=== PATIENT | female | born 1960 | race Caucasian/White ===

== ENCOUNTER 2017-03-16 10:09 | Emergency (ER) | payer MEDICAID ==
[2017-03-16] MEDS ORDERED: NORMAL SALINE 1000 ML 1,000 ML IV ONE (10:40)
[2017-03-16] MEDS ORDERED: ONDANSETRON HCL INJ/PF 4 MG/2 ML SDV IV ONE (10:40)
[2017-03-16] MEDS ORDERED: IPRATROPIUM/ALBUTEROL 0.5-2.5 MG/3 ML AMPUL NEB ONE (10:40)
--- NOTE | 2017-03-16 10:41 | ER Document Report ---
ED Medical Screen (RME) - General Chief Complaint: Nausea/Vomiting/Diarrhea Stated Complaint: FALL/RIB PAIN Time Seen by Provider: 03/16/17 10:39 Mode of Arrival: Ambulatory Information source: Patient Notes: Patient states that she tripped and fell, and her left ribs on a stool 2 days ago. Patient complains of continued rib pain and pain with inspiration. Patient does states she has a previous history of pancreatitis and states this pain feels similar to when she has had pancreatitis. Patient does report nausea , vomiting and diarrhea that started yesterday although she has not had any vomiting since early this morning. Patient does complain of pain with deep inspiration. hx: Congestion, diabetes, dyslipidemia, GERD, pancreatitis, cholecystectomy TRAVEL OUTSIDE OF THE [place] IN LAST 30 DAYS: No - Related Data Allergies/Adverse Reactions: acetaminophen [From Percocet] Adverse Reaction (Verified 03/16/17 10:14) Nausea oxycodone HCl [From Percocet] Adverse Reaction (Verified 03/16/17 10:14) Nausea Past Medical History - Social History Chew tobacco use (# tins/day): No Frequency of alcohol use: None Drug Abuse: None Family history: Hypertension - Past Medical History Cardiac Medical History: Reports: Hx Hypercholesterolemia, Hx Hypertension - NONCOMPLIANT WITH F/U Pulmonary Medical History: Reports: Hx Asthma, Hx Bronchitis, Hx COPD Endocrine Medical History: Reports: Hx Diabetes Mellitus Type 2 Renal/ Medical History: Denies: Hx Peritoneal Dialysis Past Surgical History: Reports: Hx Cholecystectomy, Hx Tubal Ligation - Immunizations Hx Diphtheria, Pertussis, Tetanus Vaccination: Yes Physical Exam - Vital signs Vitals: Temp Pulse Resp BP Pulse Ox 98.1 F 125 H 20 157/90 H 94 03/16/17 10:15 03/16/17 10:03/16/17 10:03/16/17 10:15 03/16/17 10:15 - Respiratory Respiratory status: No respiratory distress Chest status: Pain with cough, Pain with deep breathing Breath sounds: Nonproductive cough, Wheezing Course - Vital Signs Vital signs: Temp Pulse Resp BP Pulse Ox 98.1 F 125 H 20 157/90 H 94 03/16/17 10:15 03/16/17 10:15 03/16/17 10:03/16/17 10:15 03/16/17 10:15
[2017-03-16 11:12] LABS: HEMATOCRIT 45.9 % (36.0-47.0); HEMOGLOBIN 15.3 g/dL (12.0-15.5); MEAN CORPUSCULAR HEMOGLOBIN 30.3 pg (27.0-33.4); MEAN CORPUSCULAR HGB CONC 33.3 g/dL (32.0-36.0); MEAN CORPUSCULAR VOLUME 91 fl (80-97); RED BLOOD COUNT 5.05 10^6/uL (3.72-5.28)
[2017-03-16 11:16] LABS: AMORPHOUS SEDIMENT,URINE TRACE /HPF; APPEARANCE,URINE CLOUDY; BILIRUBIN,URINE NEGATIVE (NEGATIVE); GLUCOSE, URINE NEGATIVE (NEGATIVE); KETONES,URINE NEGATIVE (NEGATIVE); LEUKOCYTE ESTERASE,URINE NEGATIVE (NEGATIVE); NITRITE,URINE NEGATIVE (NEGATIVE); PROTEIN,URINE >=500 mg/dL (NEGATIVE); URINE SPECIFIC GRAVITY 1.027; UROBILINOGEN,URINE NEGATIVE mg/dL (<2.0)
[2017-03-16 11:32] LABS: BAND NEUTROPHILS % (MANUAL) 10 % (3-5); BASOPHILS % (MANUAL) 1 % (0-2); EOSINOPHILS % (MANUAL) 1 % (0-6); LYMPHOCYTES % (MANUAL) 3 % (13-45); TOTAL CELLS COUNTED 100
[2017-03-16 11:33] LABS: RBC MORPHOLOGY COMMENT NORMO-CYTIC/CHROMIC
[2017-03-16 11:35] LABS: ALANINE AMINOTRANSFERASE 36 U/L (9-52); ALBUMIN 4.7 g/dL (3.5-5.0); ALKALINE PHOSPHATASE 71 U/L (38-126); ANION GAP 16 (5-19); ASPARTATE AMINO TRANSFERASE 35 U/L (14-36); BILIRUBIN,DIRECT 0.3 mg/dL (0.0-0.4); BILIRUBIN,TOTAL 0.8 mg/dL (0.2-1.3); BLOOD UREA NITROGEN 14 mg/dL (7-20); CALCIUM 9.4 mg/dL (8.4-10.2); CARBON DIOXIDE 26 mmol/L (22-30); CHLORIDE 96 mmol/L (98-107); CREATININE RESULT 0.79 mg/dL (0.52-1.25); GLUCOSE 148 mg/dL (75-110); LIPASE 67.6 U/L (23-300); POTASSIUM 3.8 mmol/L (3.6-5.0); SODIUM 137.6 mmol/L (137-145); TOTAL PROTEIN 8.3 g/dL (6.3-8.2)
--- NOTE | 2017-03-16 11:50 | RADIOLOGY REPORT (SQ) ---
EXAM DESCRIPTION: CHEST PA/LAT COMPLETED DATE/TIME: 03/16/2017 11:38 am REASON FOR STUDY: fall, left lower anterior rib pain COMPARISON: 2015. TECHNIQUE: Frontal and lateral radiographic views of the chest acquired. NUMBER OF VIEWS: Two view. LIMITATIONS: None. FINDINGS: LUNGS AND PLEURA: No opacities, masses or pneumothorax. No pleural effusion. MEDIASTINUM AND HILAR STRUCTURES: No masses or contour abnormalities. HEART AND VASCULAR STRUCTURES: Heart normal size. No evidence for failure. BONES: Generally intact as assessed. No grossly displaced rib fractures. HARDWARE: None in the chest. OTHER: No other significant finding. IMPRESSION: NO SIGNIFICANT RADIOGRAPHIC FINDING IN THE CHEST. TECHNICAL DOCUMENTATION: JOB ID: [id number] [employer]- All Rights Reserved
--- NOTE | 2017-03-16 11:52 | RADIOLOGY REPORT (SQ) ---
EXAM DESCRIPTION: HUMERUS LEFT COMPLETED DATE/TIME: 03/16/2017 11:38 am REASON FOR STUDY: fall, left upper arm pain COMPARISON: None. NUMBER OF VIEWS: Two views left humerus. LIMITATIONS: None. FINDINGS: There is no acute or significant bone, joint or soft tissue abnormality. OTHER: Normal bone density. IMPRESSION: NORMAL STUDY. TECHNICAL DOCUMENTATION: JOB ID: [id number]
--- NOTE | 2017-03-16 13:16 | ER Document Report ---
ED General - General Chief Complaint: Nausea/Vomiting/Diarrhea Stated Complaint: FALL/RIB PAIN Time Seen by Provider: 03/16/17 10:39 Mode of Arrival: Ambulatory Information source: Patient TRAVEL OUTSIDE OF THE [place] IN LAST 30 DAYS: No - HPI Patient complains to provider of: Rib pain, left lower leg pain Onset: Other - 3 day Onset/Duration: Sudden Quality of pain: Achy Associated symptoms: Hurts to breath Exacerbated by: Movement, Coughing, Deep breathing Relieved by: Denies Similar symptoms previously: No Recently seen / treated by doctor: No Notes: Patient is a 56-year-old female who presents to the emergency room complaining of left rib pain stemming from a trip and fall that occurred 3 days ago, states she was in her kitchen and tripped over a step stool, landing on the stool on her left ribs, patient has bruising to her left lower leg and left elbow, symptoms are worse when she takes a deep breath, coughs or moves in a certain way, she denies any shortness of breath while lying still, no cough, cold or congestion, no fever or chills - Related Data Allergies/Adverse Reactions: acetaminophen [From Percocet] Adverse Reaction (Verified 03/16/17 10:14) Nausea oxycodone HCl [From Percocet] Adverse Reaction (Verified 03/16/17 10:14) Nausea Past Medical History - General Information source: Patient - Social History Smoking Status: Current Every Day Smoker Chew tobacco use (# tins/day): No Frequency of alcohol use: None Drug Abuse: None Family History: Reviewed & Not Pertinent Patient has suicidal ideation: No Patient has homicidal ideation: No - Past Medical History Cardiac Medical History: Reports: Hx Hypercholesterolemia, Hx Hypertension - NONCOMPLIANT WITH F/U Pulmonary Medical History: Reports: Hx Asthma, Hx Bronchitis, Hx COPD Endocrine Medical History: Reports: Hx Diabetes Mellitus Type 2 Renal/ Medical History: Denies: Hx Peritoneal Dialysis Past Surgical History: Reports: Hx Cholecystectomy, Hx Tubal Ligation - Immunizations Hx Diphtheria, Pertussis, Tetanus Vaccination: Yes Hx Pneumococcal Vaccination: 10/13/00 Review of Systems - Review of Systems Constitutional: No symptoms reported EENT: No symptoms reported Cardiovascular: No symptoms reported Respiratory: No symptoms reported Gastrointestinal: No symptoms reported Genitourinary: No symptoms reported Female Genitourinary: No symptoms reported Musculoskeletal: See HPI Skin: No symptoms reported Hematologic/Lymphatic: No symptoms reported Neurological/Psychological: No symptoms reported -: Yes All other systems reviewed and negative Physical Exam - Vital signs Vitals: Temp Pulse Resp BP Pulse Ox 98.1 F 125 H 20 157/90 H 94 03/16/17 10:15 03/16/17 10:15 03/16/17 10:15 03/16/17 10:15 03/16/17 10:15 Interpretation: Normal - General General appearance: Appears well, Alert - HEENT Head: Normocephalic, Atraumatic Eyes: Normal Pupils: PERRL - Respiratory Respiratory status: No respiratory distress Chest status: Tender - Tender to palpate in the left lower anterior rib Breath sounds: Normal Chest palpation: Normal - Cardiovascular Rhythm: Regular Heart sounds: Normal auscultation Murmur: No - Abdominal Inspection: Normal Distension: No distension Bowel sounds: Normal Tenderness: Nontender Organomegaly: No organomegaly - Back Back: Normal, Nontender - Extremities General upper extremity: Normal inspection, Nontender, Normal ROM, Normal temperature, Other - Small ecchymosis on the left elbow General lower extremity: Normal inspection, Nontender, Normal ROM, Normal temperature, Normal weight bearing, Other - small ecchymosis on the left lateral thigh. No: Arnoldo's sign - Neurological Neuro grossly intact: Yes Cognition: Normal Orientation: AAOx4 Cutler Coma Scale Eye Opening: Spontaneous Alecia Coma Scale Verbal: Oriented Alecia Coma Scale Motor: Obeys Commands Alecia Coma Scale Total: 15 Speech: Normal Motor strength normal: LUE, RUE, LLE, RLE Sensory: Normal - Psychological Associated symptoms: Normal affect, Normal mood - Skin Skin Temperature: Warm Skin Moisture: Dry Skin Color: Normal Course - Re-evaluation Re-evalutation: 03/16/17 15:52 Imaging and lab findings discussed with patient unremarkable, she likely has contusions from recent fall, was given pain medication and information for follow-up, advised to return if symptoms worsen, patient acknowledges understanding and agreement with this plan - Vital Signs Vital signs: Temp Pulse Resp BP Pulse Ox 100.0 F 87 22 H 125/67 98 03/16/17 13:31 03/16/17 13:31 03/16/17 13:31 03/16/17 13:31 03/16/17 13:31 - Laboratory Result Diagrams: 03/16/17 10:55 03/16/17 10:55 Laboratory results interpreted by me: 03/16/17 03/16/17 03/16/17 10:55 10:55 10:55 Seg Neuts % (Manual) 80 H Band Neutrophils % 10 H Lymphocytes % (Manual) 3 L Abs Lymphs (Manual) 0.3 L Chloride 96 L Glucose 148 H Total Protein 8.3 H Urine Protein >=500 H Urine Blood MODERATE H - Diagnostic Test Radiology reviewed: Image reviewed, Reports reviewed Discharge - Discharge Clinical Impression: Contusion of rib on left side Qualifiers: Encounter type: initial encounter Qualified Code(s): S20.212A - Contusion of left front wall of thorax, initial encounter Contusion of leg, left Qualifiers: Encounter type: initial encounter Qualified Code(s): S80.12XA - Contusion of left lower leg, initial encounter Condition: Stable Disposition: HOME, SELF-CARE Instructions: Antinausea Medication ([facility]), Oral Narcotic Medication ([facility]), Rib Contusion ([facility]), Rib Injuries and Fractures ([facility]), Contusion ([facility]), Ice Packs ( [facility]) Additional Instructions: Follow up with your primary care provider in one to 2 days. Return to the emergency room immediately if symptoms worsen or any additional concerns. Prescriptions: Hydrocodone/Acetaminophen [Hydrocodon-Acetaminophen 5-325] 1 each PO Q6 #20 tablet Ondansetron [Zofran Odt 4 mg Tablet] 1 - 2 tab PO Q4H #20 tab.rapdis Forms: Return to Work Referrals: SHUBHAM ESCOBEDO MD [Primary Care Provider] - Follow up as needed
[2017-03-16 13:36] VITALS: BP 125/67
== END 2017-03-16 13:46 | disposition home or self-care (01) ==
LOC: ER 10:09
DX: S20.212A Contusion of left front wall of thorax, initial encounter (principal); S80.12XA Contusion of left lower leg, initial encounter; R11.2 Nausea with vomiting, unspecified; Y92.000 Kitchen of unspecified non-institutional (private) residence as the place of occurrence of the external cause; W01.190A Fall on same level from slipping, tripping and stumbling with subsequent striking against furniture, initial encounter; F17.200 Nicotine dependence, unspecified, uncomplicated; E78.00 Pure hypercholesterolemia, unspecified; I10 Essential (primary) hypertension; J45.909 Unspecified asthma, uncomplicated; J44.9 Chronic obstructive pulmonary disease, unspecified; E11.9 Type 2 diabetes mellitus without complications; Z88.6 Allergy status to analgesic agent; Z90.49 Acquired absence of other specified parts of digestive tract; Z98.51 Tubal ligation status
CPT/HCPCS: 94640; 99283; 96361; 96374; 36415; 83690; 85025; 80053; 81001; 71020; 73060; J2405; J7030; J7620

== ENCOUNTER 2017-03-17 09:01 | Emergency (ER) | payer MEDICAID ==
[2017-03-17] MEDS ORDERED: ASPIRIN 81 MG TABLET, CHEWABLE PO ONE (10:11)
--- NOTE | 2017-03-17 10:14 | ER Document Report ---
ED Medical Screen (RME) - General Chief Complaint: Rib Pain Stated Complaint: DIFFICULTY BREATHING Time Seen by Provider: 03/17/17 09:44 Mode of Arrival: Ambulatory Information source: Patient Notes: Patient presents emergency department with complaints of left-sided chest pain. Patient reports that on Friday she tripped and fell over a stool hurting her left ribs, left leg. She was evaluated and treated for this yesterday in the emergency department. Patient returns today because she had a different type of pain on her left side that felt like chest tightening for about 10 minutes. She reports she felt nauseated with that pain. The pain did not radiate. She still complains of pain 3/5 but she reports that from the fall. The chest tightening she reported the pain was 5/5. TRAVEL OUTSIDE OF THE [place] IN LAST 30 DAYS: No - Related Data Allergies/Adverse Reactions: acetaminophen [From Percocet] Adverse Reaction (Verified 03/17/17 09:05) Nausea oxycodone HCl [From Percocet] Adverse Reaction (Verified 03/17/17 09:05) Nausea Past Medical History - Social History Family history: Hypertension - Past Medical History Cardiac Medical History: Reports: Hx Hypercholesterolemia, Hx Hypertension - NONCOMPLIANT WITH F/U Pulmonary Medical History: Reports: Hx Asthma, Hx Bronchitis, Hx COPD Endocrine Medical History: Reports: Hx Diabetes Mellitus Type 2 Renal/ Medical History: Denies: Hx Peritoneal Dialysis Past Surgical History: Reports: Hx Cholecystectomy, Hx Tubal Ligation - Immunizations Hx Diphtheria, Pertussis, Tetanus Vaccination: Yes Physical Exam - Vital signs Vitals: Temp Pulse Resp BP Pulse Ox 97.9 F 81 16 151/98 H 94 03/17/17 09:05 03/17/17 09:05 03/17/17 09:05 03/17/17 09:05 03/17/17 09:05 Course - Vital Signs Vital signs: Temp Pulse Resp BP Pulse Ox 97.9 F 81 16 151/98 H 94 03/17/17 09:05 03/17/17 09:05 03/17/17 09:05 03/17/17 09:05 03/17/17 09:05
--- NOTE | 2017-03-17 10:59 | RADIOLOGY REPORT (SQ) ---
EXAM DESCRIPTION: CHEST PA/LAT COMPLETED DATE/TIME: 03/17/2017 10:44 am REASON FOR STUDY: chest pain COMPARISON: 03/16/2017 EXAM PARAMETERS: NUMBER OF VIEWS: two views TECHNIQUE: Digital Frontal and Lateral radiographic views of the chest acquired. RADIATION DOSE: NA LIMITATIONS: none FINDINGS: LUNGS AND PLEURA: No opacities, masses or pneumothorax. No pleural effusion. MEDIASTINUM AND HILAR STRUCTURES: No masses or contour abnormalities. HEART AND VASCULAR STRUCTURES: Heart normal size. No evidence for failure. BONES: No acute findings. HARDWARE: None in the chest. OTHER: No other significant finding. IMPRESSION: NO SIGNIFICANT RADIOGRAPHIC FINDING IN THE CHEST. TECHNICAL DOCUMENTATION: JOB ID: [id number] [employer]- All Rights Reserved
[2017-03-17 11:54] LABS: ABSOLUTE EOSINOPHILS # (AUTO) 0.2 10^3/uL (0.0-0.6); ABSOLUTE LYMPHOCYTES (AUTO) 1.1 10^3/uL (0.5-4.7); ABSOLUTE MONOCYTES (AUTO) 0.3 10^3/uL (0.1-1.4); ABSOLUTE NEUT (AUTO) 3.1 10^3/uL (1.7-8.2); BASOPHILS % (AUTO) 0.8 % (0-2); EOSINOPHILS % (AUTO) 3.3 % (0-6); HEMATOCRIT 40.4 % (36.0-47.0); HEMOGLOBIN 13.5 g/dL (12.0-15.5); HGB HCT DIFFERENCE 0.1; LYMPHOCYTES % (AUTO) 22.7 % (13-45); MEAN CORPUSCULAR HEMOGLOBIN 30.1 pg (27.0-33.4); MEAN CORPUSCULAR HGB CONC 33.3 g/dL (32.0-36.0); MEAN CORPUSCULAR VOLUME 90 fl (80-97); RED BLOOD COUNT 4.48 10^6/uL (3.72-5.28); RED CELL DISTRIBUTION WIDTH 13.6 % (11.5-14.0); SEGMENTED NEUTROPHILS % (AUTO) 67.2 % (42-78); WHITE BLOOD COUNT 4.7 10^3/uL (4.0-10.5)
[2017-03-17] MEDS ORDERED: IPRATROPIUM/ALBUTEROL 0.5-2.5 MG/3 ML AMPUL NEB ONE (12:04)
[2017-03-17] MEDS ORDERED: OXYCODONE-ACETAMINOPHEN 5-325 MG TABLET PO ONE (12:05)
[2017-03-17] MEDS ORDERED: CYCLOBENZAPRINE HCL 10 MG TABLET PO ONE (12:05)
--- NOTE | 2017-03-17 12:06 | ER Document Report ---
ED General - General Chief Complaint: Rib Pain Stated Complaint: DIFFICULTY BREATHING Time Seen by Provider: 03/17/17 09:44 Mode of Arrival: Ambulatory Information source: Patient Notes: Patient is a 56-year-old female who presents to the ER today for continued, worsening left rib pain after falling off a step stool yesterday, falling on that side on the metal handle of the step stool. She was seen here yesterday, had a negative chest x-ray for any rib fractures, pneumothorax. She states that this morning she lifted her 25 pound granddaughter and had immediate pain again in that area. She is concerned that she injured herself again. She is having shortness of breath, she describes this as "I have to take shallow breaths." She also has COPD. TRAVEL OUTSIDE OF THE [place] IN LAST 30 DAYS: No - Related Data Allergies/Adverse Reactions: acetaminophen [From Percocet] Adverse Reaction (Verified 03/17/17 09:05) Nausea oxycodone HCl [From Percocet] Adverse Reaction (Verified 03/17/17 09:05) Nausea Past Medical History - General Information source: Patient - Social History Smoking Status: Current Every Day Smoker Chew tobacco use (# tins/day): No Frequency of alcohol use: None Drug Abuse: None Family History: Reviewed & Not Pertinent Patient has suicidal ideation: No Patient has homicidal ideation: No - Past Medical History Cardiac Medical History: Reports: Hx Hypercholesterolemia, Hx Hypertension - NONCOMPLIANT WITH F/U Pulmonary Medical History: Reports: Hx Asthma, Hx Bronchitis, Hx COPD Endocrine Medical History: Reports: Hx Diabetes Mellitus Type 2 Renal/ Medical History: Denies: Hx Peritoneal Dialysis Past Surgical History: Reports: Hx Cholecystectomy, Hx Tubal Ligation - Immunizations Hx Diphtheria, Pertussis, Tetanus Vaccination: Yes Hx Pneumococcal Vaccination: 10/13/00 Review of Systems - Review of Systems Constitutional: No symptoms reported EENT: No symptoms reported Cardiovascular: No symptoms reported Respiratory: See HPI Gastrointestinal: No symptoms reported Genitourinary: No symptoms reported Female Genitourinary: No symptoms reported Musculoskeletal: See HPI Skin: No symptoms reported Hematologic/Lymphatic: No symptoms reported Neurological/Psychological: No symptoms reported Physical Exam - Vital signs Vitals: Temp Pulse Resp BP Pulse Ox 97.9 F 81 16 151/98 H 94 03/17/17 09:05 03/17/17 09:05 03/17/17 09:05 03/17/17 09:05 03/17/17 09:05 - Notes Notes: PHYSICAL EXAMINATION: GENERAL: Uncomfortable, holding left side, but in no acute distress. HEAD: Atraumatic, normocephalic. EYES: Pupils equal round and reactive to light, extraocular movements intact, sclera anicteric, conjunctiva are normal. NECK: Normal range of motion, supple without lymphadenopathy LUNGS/CHEST: tenderness over left lateral/anterior ribs, mild expiratory wheezes in right upper lung field, no rales or rhonchi. HEART: Regular rate and rhythm without murmurs ABDOMEN: Soft, no tenderness. No guarding, no rebound EXTREMITIES: Normal range of motion, no pitting edema. No cyanosis. NEUROLOGICAL: Cranial nerves grossly intact. Normal sensory/motor exams. PSYCH: Normal mood, normal affect. SKIN: Warm, Dry, normal turgor, no rashes or lesions noted Course - Vital Signs Vital signs: Temp Pulse Resp BP Pulse Ox 97.9 F 81 16 151/98 H 94 03/17/17 09:06 03/17/17 09:06 03/17/17 09:06 03/17/17 09:06 03/17/17 09:06 - Laboratory Result Diagrams: 03/17/17 11:40 03/17/17 11:40 Laboratory results interpreted by me: 03/17/17 11:40 Glucose 119 H AST 57 H Discharge - Discharge Clinical Impression: Rib pain on left side, SOB (shortness of breath) COPD (chronic obstructive pulmonary disease) Qualifiers: COPD type: unspecified COPD Qualified Code(s): J44.9 - Chronic obstructive pulmonary disease, unspecified Condition: Stable Disposition: HOME, SELF-CARE Additional Instructions: Return immediately for any new or worsening symptoms. Follow up with primary care provider, call tomorrow to make followup appointment. Prescriptions: Cyclobenzaprine HCl [Flexeril 10 mg Tablet] 10 mg PO TIDP PRN #15 tab PRN Reason: Ipratropium/Albuterol Sulfate [Duoneb 3 ml Ampul] 3 ml NEB Q4 PRN #25 vial.neb PRN Reason: Ondansetron [Zofran Odt 4 mg Tablet] 1 - 2 tab PO Q4H PRN #15 tab.rapdis PRN Reason: For Nausea/Vomiting Oxycodone HCl/Acetaminophen [Percocet 5-325 mg Tablet] 1 - 2 tab PO Q4H PRN #15 tablet PRN Reason: Forms: Return to Work Referrals: SHUBHAM ESCOBEDO MD [Primary Care Provider] - Follow up as needed
[2017-03-17 12:24] LABS: ALANINE AMINOTRANSFERASE 40 U/L (9-52); ALKALINE PHOSPHATASE 63 U/L (38-126); ANION GAP 13 (5-19); ASPARTATE AMINO TRANSFERASE 57 U/L (14-36); BILIRUBIN,DIRECT 0.3 mg/dL (0.0-0.4); BILIRUBIN,TOTAL 0.5 mg/dL (0.2-1.3); BLOOD UREA NITROGEN 10 mg/dL (7-20); CALCIUM 8.6 mg/dL (8.4-10.2); CARBON DIOXIDE 27 mmol/L (22-30); CHLORIDE 99 mmol/L (98-107); CREATINE KINASE 120 U/L (30-135); CREATININE RESULT 0.76 mg/dL (0.52-1.25); GLUCOSE 119 mg/dL (75-110); POTASSIUM 3.8 mmol/L (3.6-5.0); SODIUM 139.2 mmol/L (137-145); TOTAL PROTEIN 7.1 g/dL (6.3-8.2)
[2017-03-17 12:36] LABS: CREATINE KINASE MB 1.35 ng/mL (<4.55)
[2017-03-17 12:38] LABS: TROPONIN I < 0.012 ng/mL
[2017-03-17 13:10] VITALS: BP 143/93
--- NOTE | 2017-03-17 14:30 | EKG REPORT ---
SEVERITY:- NORMAL ECG - SINUS RHYTHM : Confirmed by: Trevon Eubanks 17-Mar-2017 14:29:38
== END 2017-03-17 13:20 | disposition home or self-care (01) ==
LOC: ER 09:01
DX: J44.9 Chronic obstructive pulmonary disease, unspecified (principal); R07.81 Pleurodynia; W17.89XA Other fall from one level to another, initial encounter; R06.02 Shortness of breath; I10 Essential (primary) hypertension; E11.9 Type 2 diabetes mellitus without complications; F17.200 Nicotine dependence, unspecified, uncomplicated
CPT/HCPCS: 93005; 94640; 99284; 36415; 82553; 82550; 85025; 80053; 84484; 71020; 93010; J3490; J7620

== ENCOUNTER 2017-09-22 20:29 | Inpatient (IN) | payer MEDICAID ==
[2017-09-22] MEDS ORDERED: INFLUENZA ADLT QUAD (36MOS+) 2017-18 VAC 0.5 ML SYR IM PRN (21:39)
[2017-09-22] MEDS ORDERED: GLUCAGON,HUMAN RECOMB 1 MG INJ IM PRN (21:54)
[2017-09-22] MEDS ORDERED: DEXTROSE 40% GEL 15 GM TUBE PO PRN ×2 (21:54)
[2017-09-22] MEDS ORDERED: DEXTROSE 50%-WATER 25 GM/50 ML DISP.SYRIN IV PRN ×2 (21:54)
[2017-09-22] MEDS ORDERED: LEVOFLOXACIN 750 MG/D5W RTU 750 MG/150 ML RTUPB IV ONE (22:30)
[2017-09-22] MEDS: IPRATROPIUM/ALBUTEROL 0.5-2.5 MG/3 ML AMPUL NEB PRN (22:52)
[2017-09-22 22:53] LABS: ABSOLUTE BASOPHILS # (AUTO) 0.2 10^3/uL (0.0-0.2); ABSOLUTE EOSINOPHILS # (AUTO) 0.1 10^3/uL (0.0-0.6); ABSOLUTE MONOCYTES (AUTO) 0.9 10^3/uL (0.1-1.4); ABSOLUTE NEUT (AUTO) 9.7 10^3/uL (1.7-8.2); BASOPHILS % (AUTO) 1.6 % (0-2); EOSINOPHILS % (AUTO) 0.9 % (0-6); HEMATOCRIT 32.7 % (36.0-47.0); HGB HCT DIFFERENCE 0.3; LYMPHOCYTES % (AUTO) 15.6 % (13-45); MEAN CORPUSCULAR HEMOGLOBIN 30.9 pg (27.0-33.4); MEAN CORPUSCULAR HGB CONC 33.8 g/dL (32.0-36.0); MEAN CORPUSCULAR VOLUME 92 fl (80-97); MONOCYTES % (AUTO) 7.3 % (3-13); RED BLOOD COUNT 3.57 10^6/uL (3.72-5.28); RED CELL DISTRIBUTION WIDTH 13.5 % (11.5-14.0); SEGMENTED NEUTROPHILS % (AUTO) 74.6 % (42-78)
[2017-09-22] MEDS: METHYLPREDNISOLONE INJ 125 MG/2 ML SDV IV SCH (22:55)
[2017-09-22] MEDS ORDERED: KETOROLAC TROMETHAMINE INJ/PF 30 MG/1 ML SDV IV ONE (23:00)
[2017-09-22] MEDS: NORMAL SALINE 1000 ML 1,000 ML IV PRN (23:02)
--- NOTE | 2017-09-22 23:06 | RADIOLOGY REPORT (SQ) ---
EXAM DESCRIPTION: CHEST SINGLE VIEW COMPLETED DATE/TIME: 09/22/2017 10:55 pm REASON FOR STUDY: copd COMPARISON: 03/17/2017. EXAM PARAMETERS: NUMBER OF VIEWS: One view. TECHNIQUE: Single frontal radiographic view of the chest acquired. RADIATION DOSE: NA LIMITATIONS: None. FINDINGS: LUNGS AND PLEURA: Streaky irregular density in the retrocardiac left lower lobe. Right hamzah ng clear. No pleural effusion. MEDIASTINUM AND HILAR STRUCTURES: No masses. Contour normal. HEART AND VASCULAR STRUCTURES: Heart normal in size. Normal vasculature. BONES: No acute findings. HARDWARE: None in the chest. OTHER: No other significant finding. IMPRESSION: EARLY INFILTRATE IN THE LEFT LOWER LOBE. TECHNICAL DOCUMENTATION: JOB ID: [id number] [employer]- All Rights Reserved
[2017-09-22 23:18] LABS: ALANINE AMINOTRANSFERASE 33 U/L (9-52); ALBUMIN 3.5 g/dL (3.5-5.0); ALKALINE PHOSPHATASE 67 U/L (38-126); ANION GAP 10 (5-19); ASPARTATE AMINO TRANSFERASE 20 U/L (14-36); BILIRUBIN,DIRECT 0.4 mg/dL (0.0-0.4); BILIRUBIN,TOTAL 0.5 mg/dL (0.2-1.3); BLOOD UREA NITROGEN 14 mg/dL (7-20); CALCIUM 8.9 mg/dL (8.4-10.2); CARBON DIOXIDE 39 mmol/L (22-30); CHLORIDE 88 mmol/L (98-107); GLUCOSE 149 mg/dL (75-110); SODIUM 137.1 mmol/L (137-145); TOTAL PROTEIN 6.3 g/dL (6.3-8.2)
[2017-09-22 23:21] LABS: POTASSIUM 2.8 mmol/L (3.6-5.0)
[2017-09-22 23:48] LABS: THYROID STIMULATING HORMONE 0.8 uIU/mL (0.47-4.68)
[2017-09-23] MEDS: POTASSIUM CHLORIDE 10 MEQ TABLET.SA PO SCH ×3 (00:02→06:10)
[2017-09-23] MEDS: KETOROLAC TROMETHAMINE INJ/PF 30 MG/1 ML SDV IV SCH ×3 (05:36→17:33)
[2017-09-23] MEDS: METHYLPREDNISOLONE INJ 125 MG/2 ML SDV IV SCH ×3 (05:36→21:51)
[2017-09-23] MEDS: INSULIN LISPRO 100 UNIT/ML 3 ML VIAL SUBCUT PRN ×5 (06:11→21:50)
[2017-09-23 07:43] LABS: ARTERIAL BLOOD BASE EXCESS 6.2 mmol/L; ARTERIAL BLOOD O2 SATURATION 93.7 % (94-98)
[2017-09-23] MEDS: IPRATROPIUM/ALBUTEROL 0.5-2.5 MG/3 ML AMPUL NEB PRN ×3 (08:01→20:55)
[2017-09-23 08:57] LABS: ABSOLUTE LYMPHOCYTES (AUTO) 0.7 10^3/uL (0.5-4.7); ABSOLUTE MONOCYTES (AUTO) 0.2 10^3/uL (0.1-1.4); ABSOLUTE NEUT (AUTO) 11.1 10^3/uL (1.7-8.2); BASOPHILS % (AUTO) 0.3 % (0-2); EOSINOPHILS % (AUTO) 0.1 % (0-6); HEMATOCRIT 33.2 % (36.0-47.0); HEMOGLOBIN 11.1 g/dL (12.0-15.5); HGB HCT DIFFERENCE 0.1; LYMPHOCYTES % (AUTO) 5.7 % (13-45); MEAN CORPUSCULAR HEMOGLOBIN 30.6 pg (27.0-33.4); MEAN CORPUSCULAR HGB CONC 33.4 g/dL (32.0-36.0); MEAN CORPUSCULAR VOLUME 91 fl (80-97); MONOCYTES % (AUTO) 1.8 % (3-13); RED BLOOD COUNT 3.63 10^6/uL (3.72-5.28); RED CELL DISTRIBUTION WIDTH 13.3 % (11.5-14.0); SEGMENTED NEUTROPHILS % (AUTO) 92.1 % (42-78)
[2017-09-23 09:10] LABS: ALANINE AMINOTRANSFERASE 26 U/L (9-52); ALBUMIN 3.3 g/dL (3.5-5.0); ALKALINE PHOSPHATASE 61 U/L (38-126); ASPARTATE AMINO TRANSFERASE 16 U/L (14-36); BILIRUBIN,DIRECT 0.2 mg/dL (0.0-0.4); BILIRUBIN,TOTAL 0.2 mg/dL (0.2-1.3); BLOOD UREA NITROGEN 23 mg/dL (7-20); CALCIUM 8.9 mg/dL (8.4-10.2); CHLORIDE 95 mmol/L (98-107); CREATININE RESULT 1.08 mg/dL (0.52-1.25); GLUCOSE 317 mg/dL (75-110); SODIUM 136.1 mmol/L (137-145); TOTAL PROTEIN 5.9 g/dL (6.3-8.2)
[2017-09-23 09:18] LABS: ANION GAP 11 (5-19)
[2017-09-23 09:20] LABS: CARBON DIOXIDE 30 mmol/L (22-30); POTASSIUM 4.5 mmol/L (3.6-5.0)
[2017-09-23] MEDS ORDERED: LEVOFLOXACIN 750 MG/D5W RTU 750 MG/150 ML RTUPB IV SCH ×2 (10:00→22:00)
[2017-09-23] MEDS ORDERED: [UNRECOGNIZED DRUG - OTHER] PO SCH (12:00)
[2017-09-23] MEDS ORDERED: (PENDING PHARMACY ID) (Lisinopril/Hydrochlorothiazide [Lisinopril-Hctz 20-12.5 Mg Tab] 1 E PO SCH (12:00)
--- NOTE | 2017-09-23 12:11 | PDOC H&P ---
History of Present Illness Admission Date/PCP: 09/22/17 20:29 SHUBHAM ESCOBEDO MD History of Present Illness: ANUPAM MENON is a 57 year old female, she has a history of type 2 diabetes mellitus, gout, tobacco dependence, she came to the office for evaluation of shortness of breath, cough, redness and pain of the right foot. She was seen and evaluated in the office, on inspection of the right foot there is swelling and erythema of the right foot with tenderness on palpation. I could not rule out osteomyelitis versus gout versus cellulitis in the office, I thought she would need MRI of the foot to differentiate which of this condition is predominant. She also was audibly wheezing, shortness of breath and cough. The cough is productive of sputum, she was admitted directly from the office into the hospital for evaluation and management of her symptoms because of the many constellation of symptoms and signs including possible pneumonia/COPD and possible cellulitis of the right foot. The chest x-ray that was done suggest early pneumonia in the left lower lobe, the ABG on room air, pH is 7.45 PCO2 45.7 bicarbonate 31, consistent with respiratory alkalosis with relative hypoxemia Past Medical History Cardiac Medical History: Reports: Hyperlipidema, Hypertension - NONCOMPLIANT WITH F/U Pulmonary Medical History: Reports: Asthma, Bronchitis, Chronic Obstructive Pulmonary Disease (COPD) Endocrine Medical History: Reports: Diabetes Mellitus Type 2 Past Surgical History Past Surgical History: Reports: Cholecystectomy, Tubal Ligation Social History Smoking Status: Current Every Day Smoker Cigarettes Packs Per Day: 1 Number of Years Smokin Last Time Smoked: today Frequency of Alcohol Use: Occasional Hx Prescription Drug Abuse: No Family History Family History: Reviewed & Not Pertinent Parental Family History Reviewed: Yes Children Family History Reviewed: Yes Sibling(s) Family History Reviewed.: Yes Medication/Allergy Home Medications: Allopurinol [Zyloprim 300 mg Tablet] 300 mg PO DAILY 09/23/17 Atorvastatin Calcium [Lipitor 40 mg Tablet] 40 mg PO DAILY 09/23/17 Lisinopril/Hydrochlorothiazide [Lisinopril-Hctz 20-12.5 mg Tab] 1 each PO Q12 Metformin HCl [Glucophage] 1,000 mg PO Q12 09/23/17 Omeprazole 20 mg PO DAILY 09/23/17 Sour Gutierrez Extract [Tart Gutierrez Extract] 1,200 mg PO DAILY 09/23/17 Allergies/Adverse Reactions: No Known Allergies Allergy (Verified 03/17/17 13:49) Review of Systems Ears: ABSENT: hearing changes Cardiovascular: ABSENT: as per HPI, chest pain, edema, orthropnea, palpitations , other Respiratory: PRESENT: cough, dyspnea Gastrointestinal: ABSENT: abdominal pain, constipation, diarrhea, hematemesis, hematochezia, nausea, vomiting Genitourinary: ABSENT: dysuria, hematuria Musculoskeletal: PRESENT: other - Right foot pain Integumentary: ABSENT: rash, wounds Neurological: ABSENT: abnormal gait, abnormal speech, confusion, dizziness, focal weakness, syncope Psychiatric: ABSENT: anxiety, depression, homidical ideation, suicidal ideation Endocrine: ABSENT: cold intolerance, heat intolerance, menstrual abnormalities, polydipsia, polyuria Hematologic/Lymphatic: ABSENT: easy bleeding, easy bruising, lymphadenopathy Physical Exam Vital Signs: Temp Pulse Resp BP Pulse Ox 97.7 F 90 16 157/84 H 96 09/23/17 07:34 09/23/17 08:00 09/23/17 08:00 09/23/17 07:34 09/23/17 08:00 Intake & Output 09/22/17 09/23/17 09/24/17 06:59 06:59 06:59 Intake Total 1342 Balance 1342 Weight 68.2 kg General appearance: PRESENT: no acute distress, well-developed, well-nourished Head exam: PRESENT: atraumatic, normocephalic Eye exam: PRESENT: conjunctiva pink, EOMI, PERRLA Ear exam: PRESENT: normal external ear exam Mouth exam: PRESENT: moist, tongue midline Neck exam: PRESENT: full ROM. ABSENT: carotid bruit, JVD, lymphadenopathy, thyromegaly Respiratory exam: PRESENT: wheezes Cardiovascular exam: PRESENT: RRR, +S1, +S2 Pulses: PRESENT: normal dorsalis pedis pul, +2 pedal pulses bilateral Vascular exam: PRESENT: normal capillary refill GI/Abdominal exam: PRESENT: normal bowel sounds, soft Rectal exam: PRESENT: deferred Extremities exam: PRESENT: other - Swelling, redness of the right foot involving particularly, lateral aspect with the dorsum of the foot Neurological exam: PRESENT: alert, awake, oriented to person, oriented to place , oriented to time, oriented to situation, CN II-XII grossly intact Psychiatric exam: PRESENT: appropriate affect, normal mood Skin exam: PRESENT: dry, intact, warm Results Laboratory Results: 09/23/17 08:44 09/23/17 08:44 09/22/17 09/22/17 09/22/17 22:20 22:20 22:20 WBC 13.0 H RBC 3.57 L Hgb 11.0 L Hct 32.7 L MCV 92 MCH 30.9 MCHC 33.8 RDW 13.5 Plt Count 338 Seg Neutrophils % 74.6 Lymphocytes % 15.6 Monocytes % 7.3 Eosinophils % 0.9 Basophils % 1.6 Absolute Neutrophils 9.7 H Absolute Lymphocytes 2.0 Absolute Monocytes 0.9 Absolute Eosinophils 0.1 Absolute Basophils 0.2 Carbonic Acid HCO3/H2CO3 Ratio ABG pH ABG pCO2 ABG pO2 ABG HCO3 ABG O2 Saturation ABG Base Excess FiO2 Sodium 137.1 Potassium 2.8 L* Chloride 88 L Carbon Dioxide 39 H Anion Gap 10 BUN 14 Creatinine 0.90 Est GFR ( Amer) > 60 Est GFR (Non-Af Amer) > 60 Glucose 149 H Lactic Acid Calcium 8.9 Total Bilirubin 0.5 AST 20 ALT 33 Alkaline Phosphatase 67 Total Protein 6.3 Albumin 3.5 TSH 0.80 Free T4 1.30 09/22/17 09/23/17 09/23/17 23:28 06:22 08:44 WBC 12.0 H RBC 3.63 L Hgb 11.1 L Hct 33.2 L MCV 91 MCH 30.6 MCHC 33.4 RDW 13.3 Plt Count 318 Seg Neutrophils % 92.1 H Lymphocytes % 5.7 L Monocytes % 1.8 L Eosinophils % 0.1 Basophils % 0.3 Absolute Neutrophils 11.1 H Absolute Lymphocytes 0.7 Absolute Monocytes 0.2 Absolute Eosinophils 0.0 Absolute Basophils 0.0 Carbonic Acid 1.38 H HCO3/H2CO3 Ratio 22:1 ABG pH 7.45 ABG pCO2 45.7 H ABG pO2 66.1 L ABG HCO3 31.0 H ABG O2 Saturation 93.7 L ABG Base Excess 6.2 FiO2 21% Sodium Potassium Chloride Carbon Dioxide Anion Gap BUN Creatinine Est GFR ( Amer) Est GFR (Non-Af Amer) Glucose Lactic Acid 2.0 Calcium Total Bilirubin AST ALT Alkaline Phosphatase Total Protein Albumin TSH Free T4 09/23/17 08:44 WBC RBC Hgb Hct MCV MCH MCHC RDW Plt Count Seg Neutrophils % Lymphocytes % Monocytes % Eosinophils % Basophils % Absolute Neutrophils Absolute Lymphocytes Absolute Monocytes Absolute Eosinophils Absolute Basophils Carbonic Acid HCO3/H2CO3 Ratio ABG pH ABG pCO2 ABG pO2 ABG HCO3 ABG O2 Saturation ABG Base Excess FiO2 Sodium 136.1 L Potassium 4.5 D Chloride 95 L Carbon Dioxide 30 Anion Gap 11 BUN 23 H Creatinine 1.08 Est GFR ( Amer) > 60 Est GFR (Non-Af Amer) 53 L Glucose 317 H Lactic Acid Calcium 8.9 Total Bilirubin 0.2 AST 16 ALT 26 Alkaline Phosphatase 61 Total Protein 5.9 L Albumin 3.3 L TSH Free T4 Impressions: Chest X-Ray 09/22/17 00:00 IMPRESSION: EARLY INFILTRATE IN THE LEFT LOWER LOBE. Assessment & Plan - Diagnosis (1) Acute exacerbation of chronic obstructive pulmonary disease (COPD) Is this a current diagnosis for this admission?: Yes Plan: She has acute COPD exacerbation, she will be treated with IV Solu-Medrol 125 mg every 6 hours, IV antibiotic, bronchodilators (2) Cellulitis of right foot Is this a current diagnosis for this admission?: Yes Plan: I cannot completely rule out osteomyelitis this patient, MRI of the foot is ordered (3) Left lower lobe pneumonia Qualifiers: Pneumonia type: due to unspecified organism Qualified Code(s): J18.1 - Lobar pneumonia, unspecified organism Is this a current diagnosis for this admission?: Yes (4) Type 2 diabetes mellitus Qualifiers: Diabetes mellitus complication status: without complication Diabetes mellitus custodial insulin use: without terminal gauger supervisor use Qualified Code(s): E11.9 - Type 2 diabetes mellitus without complications Is this a current diagnosis for this admission?: Yes (5) Nicotine dependence, cigarettes, with other nicotine-induced disorders Is this a current diagnosis for this admission?: Yes (6) Respiratory alkalosis Is this a current diagnosis for this admission?: Yes
[2017-09-23] MEDS ORDERED: ATORVASTATIN CALCIUM 40 MG TABLET PO ONE (13:00)
[2017-09-23] MEDS ORDERED: HYDROCHLOROTHIAZIDE 12.5 MG CAPSULE PO ONE (13:30)
[2017-09-23] MEDS ORDERED: ALLOPURINOL 300 MG TABLET PO ONE (13:30)
[2017-09-23] MEDS ORDERED: LISINOPRIL 10 MG TABLET PO ONE (13:30)
--- NOTE | 2017-09-23 13:55 | RADIOLOGY REPORT (SQ) ---
EXAM DESCRIPTION: MRI RT LOWER EXTREMITY WITHOUT COMPLETED DATE/TIME: 09/23/2017 1:06 pm REASON FOR STUDY: osteomyelitis COMPARISON: None. TECHNIQUE: T1-weighted, T2-weighted, and gradient echo noncontrast multiplanar imaging of the right foot. LIMITATIONS: None. FINDINGS: MARROW SIGNAL: No marrow signal alteration. No occult fracture. No evidence for osteo ne crosis. JOINT EFFUSION: No significant effusions. PLANTAR FASCIA: Normal as visualized. TARSOMETATARSAL AND TOE ARTICULATIONS: Anatomic. Mild degenerative changes first metatarsal phalange al joint. INTERMETATARSAL SPACES AND PLANTAR PLATES: Intact. No soft tissue mass to suggest a neuroma. SOFT TISSUES: Mild dorsal and plantar soft tissue swelling. No abscess. OTHER: No other significant finding. IMPRESSION: Mild soft tissue swelling. No occult fractures. TECHNICAL DOCUMENTATION: JOB ID: [id number] [employer]- All Rights Reserved
[2017-09-23] MEDS: NORMAL SALINE 1000 ML 1,000 ML IV PRN (15:50)
[2017-09-23] MEDS: METFORMIN HCL 500 MG TABLET PO SCH ×2 (17:30→21:52)
[2017-09-23 18:47] LABS: ANION GAP 14 (5-19); BLOOD UREA NITROGEN 33 mg/dL (7-20); CALCIUM 9.4 mg/dL (8.4-10.2); CARBON DIOXIDE 29 mmol/L (22-30); CHLORIDE 95 mmol/L (98-107); CREATININE RESULT 1.55 mg/dL (0.52-1.25); GLUCOSE 327 mg/dL (75-110); POTASSIUM 4.5 mmol/L (3.6-5.0)
[2017-09-23 20:53] LABS: APPEARANCE,URINE SLIGHTLY-CLOUDY; BILIRUBIN,URINE NEGATIVE (NEGATIVE); GLUCOSE, URINE >=500 mg/dL (NEGATIVE); KETONES,URINE NEGATIVE (NEGATIVE); LEUKOCYTE ESTERASE,URINE SMALL (NEGATIVE); NITRITE,URINE NEGATIVE (NEGATIVE); PROTEIN,URINE 30 mg/dL (NEGATIVE); URINE SPECIFIC GRAVITY 1.021; UROBILINOGEN,URINE NEGATIVE mg/dL (<2.0)
--- NOTE | 2017-09-23 21:13 | PDOC PROGRESS REPORT ---
Subjective Progress Note for:: 09/23/17 Subjective:: She was admitted for the management of acute COPD exacerbation, inflammatory right foot, MRI of the foot was done, history of meningitis was ruled out it is more consistent with cellulitis of the right foot. She developed acute kidney injury most likely secondary to IV Toradol, she was given IV Toradol for the pain from the inflammation of the right foot. She also has COPD with acute sedation and also pneumonia she responded to IV Solu-Medrol there is less wheezing today compared to yesterday Reason For Visit: COPD, OSTEOMYELITIS OF RIGHT FOOT, She was seen by the bedside, she was admitted for the management of acute COPD exacerbation, right food inflammatory process, MRI of the right foot was done, osteomyelitis was ruled out it is more consistent with cellulitis of the right foot. Yesterday she was treated with IV Solu-Medrol, IV Toradol for the inflammatory foot pain, she developed acute kidney injury from today's lab work most likely from the IV Toradol. Physical Exam Vital Signs: Temp Pulse Resp BP Pulse Ox 97.3 F 80 16 154/78 H 97 09/23/17 19:20 09/23/17 19:20 09/23/17 19:20 09/23/17 19:20 09/23/17 19:20 Intake & Output 09/22/17 09/23/17 09/24/17 06:59 06:59 06:59 Intake Total 1342 1871 Balance 1342 1871 Weight 68.2 kg 68.2 kg General appearance: PRESENT: mild distress Head exam: PRESENT: atraumatic, normocephalic Eye exam: PRESENT: PERRLA. ABSENT: scleral icterus Ear exam: PRESENT: normal external ear exam Mouth exam: PRESENT: moist, tongue midline Respiratory exam: PRESENT: wheezes Cardiovascular exam: PRESENT: RRR, +S1, +S2 Vascular exam: PRESENT: normal capillary refill GI/Abdominal exam: PRESENT: normal bowel sounds, soft Rectal exam: PRESENT: deferred Musculoskeletal exam: PRESENT: other - inflammation of the right foot Neurological exam: PRESENT: alert, awake, oriented to person, oriented to place , oriented to time, oriented to situation, CN II-XII grossly intact. ABSENT: motor sensory deficit Psychiatric exam: PRESENT: appropriate affect, normal mood. ABSENT: homicidal ideation, suicidal ideation Skin exam: PRESENT: dry, intact, warm. ABSENT: cyanosis, rash Results Laboratory Results: 09/23/17 08:44 09/23/17 18:10 09/22/17 09/22/17 09/22/17 22:20 22:20 22:20 WBC 13.0 H RBC 3.57 L Hgb 11.0 L Hct 32.7 L MCV 92 MCH 30.9 MCHC 33.8 RDW 13.5 Plt Count 338 Seg Neutrophils % 74.6 Lymphocytes % 15.6 Monocytes % 7.3 Eosinophils % 0.9 Basophils % 1.6 Absolute Neutrophils 9.7 H Absolute Lymphocytes 2.0 Absolute Monocytes 0.9 Absolute Eosinophils 0.1 Absolute Basophils 0.2 Carbonic Acid HCO3/H2CO3 Ratio ABG pH ABG pCO2 ABG pO2 ABG HCO3 ABG O2 Saturation ABG Base Excess FiO2 Sodium 137.1 Potassium 2.8 L* Chloride 88 L Carbon Dioxide 39 H Anion Gap 10 BUN 14 Creatinine 0.90 Est GFR ( Amer) > 60 Est GFR (Non-Af Amer) > 60 Glucose 149 H Lactic Acid Calcium 8.9 Total Bilirubin 0.5 AST 20 ALT 33 Alkaline Phosphatase 67 Total Protein 6.3 Albumin 3.5 TSH 0.80 Free T4 1.30 Urine Color Urine Appearance Urine pH Ur Specific [place] Urine Protein Urine Glucose (UA) Urine Ketones Urine Blood Urine Nitrite Ur Leukocyte Esterase Urine WBC (Auto) Urine RBC (Auto) 09/22/17 09/23/17 09/23/17 23:28 06:22 08:44 WBC 12.0 H RBC 3.63 L Hgb 11.1 L Hct 33.2 L MCV 91 MCH 30.6 MCHC 33.4 RDW 13.3 Plt Count 318 Seg Neutrophils % 92.1 H Lymphocytes % 5.7 L Monocytes % 1.8 L Eosinophils % 0.1 Basophils % 0.3 Absolute Neutrophils 11.1 H Absolute Lymphocytes 0.7 Absolute Monocytes 0.2 Absolute Eosinophils 0.0 Absolute Basophils 0.0 Carbonic Acid 1.38 H HCO3/H2CO3 Ratio 22:1 ABG pH 7.45 ABG pCO2 45.7 H ABG pO2 66.1 L ABG HCO3 31.0 H ABG O2 Saturation 93.7 L ABG Base Excess 6.2 FiO2 21% Sodium Potassium Chloride Carbon Dioxide Anion Gap BUN Creatinine Est GFR ( Amer) Est GFR (Non-Af Amer) Glucose Lactic Acid 2.0 Calcium Total Bilirubin AST ALT Alkaline Phosphatase Total Protein Albumin TSH Free T4 Urine Color Urine Appearance Urine pH Ur Specific [place] Urine Protein Urine Glucose (UA) Urine Ketones Urine Blood Urine Nitrite Ur Leukocyte Esterase Urine WBC (Auto) Urine RBC (Auto) 09/23/17 09/23/17 09/23/17 08:44 18:10 20:30 WBC RBC Hgb Hct MCV MCH MCHC RDW Plt Count Seg Neutrophils % Lymphocytes % Monocytes % Eosinophils % Basophils % Absolute Neutrophils Absolute Lymphocytes Absolute Monocytes Absolute Eosinophils Absolute Basophils Carbonic Acid HCO3/H2CO3 Ratio ABG pH ABG pCO2 ABG pO2 ABG HCO3 ABG O2 Saturation ABG Base Excess FiO2 Sodium 136.1 L 138.0 Potassium 4.5 D 4.5 Chloride 95 L 95 L Carbon Dioxide 30 29 Anion Gap 11 14 BUN 23 H 33 H Creatinine 1.08 1.55 H Est GFR ( Amer) > 60 42 L Est GFR (Non-Af Amer) 53 L 35 L Glucose 317 H 327 H Lactic Acid Calcium 8.9 9.4 Total Bilirubin 0.2 AST 16 ALT 26 Alkaline Phosphatase 61 Total Protein 5.9 L Albumin 3.3 L TSH Free T4 Urine Color YELLOW Urine Appearance SLIGHTLY-CLOUDY Urine pH 5.0 Ur Specific [place] 1.021 Urine Protein 30 H Urine Glucose (UA) >=500 H Urine Ketones NEGATIVE Urine Blood SMALL H Urine Nitrite NEGATIVE Ur Leukocyte Esterase SMALL H Urine WBC (Auto) 4 Urine RBC (Auto) 2 Impressions: Chest X-Ray 09/22/17 00:00 IMPRESSION: EARLY INFILTRATE IN THE LEFT LOWER LOBE. Lower Extremity MRI 09/23/17 11:57 IMPRESSION: Mild soft tissue swelling. No occult fractures. Assessment & Plan - Diagnosis (1) Acute exacerbation of chronic obstructive pulmonary disease (COPD) Is this a current diagnosis for this admission?: Yes (2) Cellulitis of right foot Is this a current diagnosis for this admission?: Yes (3) Left lower lobe pneumonia Qualifiers: Pneumonia type: due to unspecified organism Qualified Code(s): J18.1 - Lobar pneumonia, unspecified organism Is this a current diagnosis for this admission?: Yes (4) Type 2 diabetes mellitus Qualifiers: Diabetes mellitus complication status: without complication Diabetes mellitus termite helper insulin use: without fci use Qualified Code(s): E11.9 - Type 2 diabetes mellitus without complications Is this a current diagnosis for this admission?: Yes (5) Nicotine dependence, cigarettes, with other nicotine-induced disorders Is this a current diagnosis for this admission?: Yes (6) Respiratory alkalosis Is this a current diagnosis for this admission?: Yes - Plan Summary Plan Summary: She will continue IV Solu-Medrol, antibiotic, will discontinue Toradol
[2017-09-23] MEDS: HYDROCHLOROTHIAZIDE 12.5 MG CAPSULE PO SCH (21:53)
[2017-09-23] MEDS: LISINOPRIL 10 MG TABLET PO SCH (21:54)
[2017-09-23] MEDS ORDERED: NICOTINE 21 MG/24 HR PATCH.TD24 TD ONE (22:00)
[2017-09-24] MEDS: LANSOPRAZOLE 15 MG TAB.RAP.DR PO SCH (05:51)
[2017-09-24] MEDS: METHYLPREDNISOLONE INJ 125 MG/2 ML SDV IV SCH ×3 (05:51→21:17)
[2017-09-24] MEDS: METFORMIN HCL 500 MG TABLET PO SCH ×4 (07:52→21:18)
[2017-09-24] MEDS: INSULIN LISPRO 100 UNIT/ML 3 ML VIAL SUBCUT PRN ×4 (07:52→21:54)
[2017-09-24 09:33] LABS: HEMATOCRIT 32.3 % (36.0-47.0); HEMOGLOBIN 10.6 g/dL (12.0-15.5); HGB HCT DIFFERENCE -0.5; MEAN CORPUSCULAR HEMOGLOBIN 30.4 pg (27.0-33.4); MEAN CORPUSCULAR HGB CONC 32.7 g/dL (32.0-36.0); MEAN CORPUSCULAR VOLUME 93 fl (80-97); RED BLOOD COUNT 3.47 10^6/uL (3.72-5.28); RED CELL DISTRIBUTION WIDTH 13.3 % (11.5-14.0); WHITE BLOOD COUNT 20.4 10^3/uL (4.0-10.5)
[2017-09-24 09:55] LABS: ALANINE AMINOTRANSFERASE 29 U/L (9-52); ALBUMIN 2.9 g/dL (3.5-5.0); ALKALINE PHOSPHATASE 51 U/L (38-126); ANION GAP 15 (5-19); ASPARTATE AMINO TRANSFERASE 13 U/L (14-36); BLOOD UREA NITROGEN 37 mg/dL (7-20); CALCIUM 8.8 mg/dL (8.4-10.2); CARBON DIOXIDE 22 mmol/L (22-30); CHLORIDE 99 mmol/L (98-107); CREATININE RESULT 1.19 mg/dL (0.52-1.25); GLUCOSE 326 mg/dL (75-110); POTASSIUM 4.6 mmol/L (3.6-5.0); SODIUM 136.2 mmol/L (137-145); TOTAL PROTEIN 5.3 g/dL (6.3-8.2)
[2017-09-24 09:56] LABS: BILIRUBIN,TOTAL < 0.1 mg/dL (0.2-1.3)
[2017-09-24 10:00] LABS: BAND NEUTROPHILS % (MANUAL) 1 % (3-5); BASOPHILS % (MANUAL) 0 % (0-2); EOSINOPHILS % (MANUAL) 0 % (0-6); LYMPHOCYTES % (MANUAL) 7 % (13-45); TOTAL CELLS COUNTED 100
[2017-09-24 10:01] LABS: HYPOCHROMASIA SLIGHT; POLYCHROMASIA SLIGHT; TOXIC GRANULATION 1+
[2017-09-24] MEDS: HYDROCHLOROTHIAZIDE 12.5 MG CAPSULE PO SCH ×2 (10:32→21:17)
[2017-09-24] MEDS: ALLOPURINOL 300 MG TABLET PO SCH (10:32)
[2017-09-24] MEDS: LISINOPRIL 10 MG TABLET PO SCH ×2 (10:32→21:18)
[2017-09-24] MEDS: NORMAL SALINE 1000 ML 1,000 ML IV PRN (10:33)
[2017-09-24] MEDS: NICOTINE 21 MG/24 HR PATCH.TD24 TD SCH (10:33)
[2017-09-24] MEDS: ATORVASTATIN CALCIUM 40 MG TABLET PO SCH (10:33)
[2017-09-24] MEDS: IPRATROPIUM/ALBUTEROL 0.5-2.5 MG/3 ML AMPUL NEB PRN (14:06)
--- NOTE | 2017-09-24 14:37 | PDOC PROGRESS REPORT ---
Subjective Progress Note for:: 09/24/17 Subjective:: She was seen by the bedside, she said she feels better than when she was admitted Reason For Visit: COPD, OSTEOMYELITIS OF RIGHT FOOT Physical Exam Vital Signs: Temp Pulse Resp BP Pulse Ox 98.1 F 80 18 158/79 H 94 09/24/17 11:40 09/24/17 14:06 09/24/17 14:06 09/24/17 11:40 09/24/17 14:06 Intake & Output 09/23/17 09/24/17 09/25/17 06:59 06:59 06:59 Intake Total 1342 4105 Output Total 600 Balance 1342 3505 Weight 68.2 kg 68.2 kg Head exam: PRESENT: atraumatic, normocephalic Eye exam: PRESENT: conjunctiva pink, EOMI, PERRLA Ear exam: PRESENT: normal external ear exam Mouth exam: PRESENT: moist, tongue midline Neck exam: PRESENT: full ROM Respiratory exam: PRESENT: clear to auscultation meaghan Cardiovascular exam: PRESENT: RRR, +S1, +S2 Pulses: PRESENT: normal dorsalis pedis pul, +2 pedal pulses bilateral Vascular exam: PRESENT: normal capillary refill GI/Abdominal exam: PRESENT: normal bowel sounds, soft Rectal exam: PRESENT: deferred Neurological exam: PRESENT: alert, awake, oriented to person, oriented to place , oriented to time, oriented to situation, CN II-XII grossly intact Psychiatric exam: PRESENT: appropriate affect, normal mood Skin exam: PRESENT: dry, intact, warm. ABSENT: cyanosis, rash Results Laboratory Results: 09/24/17 09:00 09/24/17 09:00 09/23/17 09/23/17 09/24/17 18:10 20:30 09:00 WBC 20.4 H RBC 3.47 L Hgb 10.6 L Hct 32.3 L MCV 93 MCH 30.4 MCHC 32.7 RDW 13.3 Plt Count 354 Seg Neutrophils % Not Reportable Lymphocytes % Not Reportable Monocytes % Not Reportable Eosinophils % Not Reportable Basophils % Not Reportable Absolute Neutrophils Not Reportable Absolute Lymphocytes Not Reportable Absolute Monocytes Not Reportable Absolute Eosinophils Not Reportable Absolute Basophils Not Reportable Sodium 138.0 Potassium 4.5 Chloride 95 L Carbon Dioxide 29 Anion Gap 14 BUN 33 H Creatinine 1.55 H Est GFR ( Amer) 42 L Est GFR (Non-Af Amer) 35 L Glucose 327 H Calcium 9.4 Total Bilirubin AST ALT Alkaline Phosphatase Total Protein Albumin Urine Color YELLOW Urine Appearance SLIGHTLY-CLOUDY Urine pH 5.0 Ur Specific [place] 1.021 Urine Protein 30 H Urine Glucose (UA) >=500 H Urine Ketones NEGATIVE Urine Blood SMALL H Urine Nitrite NEGATIVE Ur Leukocyte Esterase SMALL H Urine WBC (Auto) 4 Urine RBC (Auto) 2 09/24/17 09:00 WBC RBC Hgb Hct MCV MCH MCHC RDW Plt Count Seg Neutrophils % Lymphocytes % Monocytes % Eosinophils % Basophils % Absolute Neutrophils Absolute Lymphocytes Absolute Monocytes Absolute Eosinophils Absolute Basophils Sodium 136.2 L Potassium 4.6 Chloride 99 Carbon Dioxide 22 Anion Gap 15 BUN 37 H Creatinine 1.19 Est GFR ( Amer) 57 L Est GFR (Non-Af Amer) 47 L Glucose 326 H Calcium 8.8 Total Bilirubin < 0.1 L AST 13 L ALT 29 Alkaline Phosphatase 51 Total Protein 5.3 L Albumin 2.9 L Urine Color Urine Appearance Urine pH Ur Specific [place] Urine Protein Urine Glucose (UA) Urine Ketones Urine Blood Urine Nitrite Ur Leukocyte Esterase Urine WBC (Auto) Urine RBC (Auto) Impressions: Chest X-Ray 09/22/17 00:00 IMPRESSION: EARLY INFILTRATE IN THE LEFT LOWER LOBE. Lower Extremity MRI 09/23/17 11:57 IMPRESSION: Mild soft tissue swelling. No occult fractures. Assessment & Plan - Diagnosis (1) Acute exacerbation of chronic obstructive pulmonary disease (COPD) Is this a current diagnosis for this admission?: Yes (2) Cellulitis of right foot Is this a current diagnosis for this admission?: Yes (3) Left lower lobe pneumonia Qualifiers: Pneumonia type: due to unspecified organism Qualified Code(s): J18.1 - Lobar pneumonia, unspecified organism Is this a current diagnosis for this admission?: Yes (4) Type 2 diabetes mellitus Qualifiers: Diabetes mellitus complication status: without complication Diabetes mellitus termite control servicer insulin use: without termite control servicer use Qualified Code(s): E11.9 - Type 2 diabetes mellitus without complications Is this a current diagnosis for this admission?: Yes (5) Nicotine dependence, cigarettes, with other nicotine-induced disorders Is this a current diagnosis for this admission?: Yes (6) Respiratory alkalosis Is this a current diagnosis for this admission?: Yes (7) Steroid-induced hyperglycemia Is this a current diagnosis for this admission?: Yes - Plan Summary Plan Summary: The Solu-Medrol dose will be reduced to 60 mg IV every 8
[2017-09-24] MEDS: LEVOFLOXACIN 750 MG TABLET PO SCH (21:18)
[2017-09-25] MEDS: NORMAL SALINE 1000 ML 1,000 ML IV PRN ×2 (01:30→17:24)
[2017-09-25] MEDS: LANSOPRAZOLE 15 MG TAB.RAP.DR PO SCH (05:36)
[2017-09-25] MEDS: METHYLPREDNISOLONE INJ 125 MG/2 ML SDV IV SCH ×2 (05:37→13:00)
[2017-09-25] MEDS: IPRATROPIUM/ALBUTEROL 0.5-2.5 MG/3 ML AMPUL NEB PRN (08:40)
[2017-09-25] MEDS: METFORMIN HCL 500 MG TABLET PO SCH ×4 (08:55→21:22)
[2017-09-25] MEDS: INSULIN LISPRO 100 UNIT/ML 3 ML VIAL SUBCUT PRN ×3 (08:58→17:23)
[2017-09-25] MEDS: ATORVASTATIN CALCIUM 40 MG TABLET PO SCH (09:01)
[2017-09-25] MEDS: NICOTINE 21 MG/24 HR PATCH.TD24 TD SCH (09:01)
[2017-09-25] MEDS: HYDROCHLOROTHIAZIDE 12.5 MG CAPSULE PO SCH ×2 (09:01→21:31)
[2017-09-25] MEDS: ALLOPURINOL 300 MG TABLET PO SCH (09:01)
[2017-09-25] MEDS: LISINOPRIL 10 MG TABLET PO SCH ×2 (09:03→21:32)
[2017-09-25 12:02] LABS: ABSOLUTE LYMPHOCYTES (AUTO) 0.5 10^3/uL (0.5-4.7); ABSOLUTE MONOCYTES (AUTO) 0.6 10^3/uL (0.1-1.4); ABSOLUTE NEUT (AUTO) 17.4 10^3/uL (1.7-8.2); BASOPHILS % (AUTO) 0.1 % (0-2); HEMATOCRIT 34.2 % (36.0-47.0); HEMOGLOBIN 11.3 g/dL (12.0-15.5); HGB HCT DIFFERENCE -0.3; LYMPHOCYTES % (AUTO) 2.9 % (13-45); MEAN CORPUSCULAR HEMOGLOBIN 30.6 pg (27.0-33.4); MEAN CORPUSCULAR VOLUME 93 fl (80-97); RED BLOOD COUNT 3.68 10^6/uL (3.72-5.28); RED CELL DISTRIBUTION WIDTH 13.3 % (11.5-14.0); WHITE BLOOD COUNT 18.6 10^3/uL (4.0-10.5)
[2017-09-25 12:13] LABS: ALANINE AMINOTRANSFERASE 27 U/L (9-52); ALBUMIN 3.2 g/dL (3.5-5.0); ALKALINE PHOSPHATASE 45 U/L (38-126); ANION GAP 13 (5-19); ASPARTATE AMINO TRANSFERASE 12 U/L (14-36); BLOOD UREA NITROGEN 43 mg/dL (7-20); CALCIUM 8.8 mg/dL (8.4-10.2); CARBON DIOXIDE 24 mmol/L (22-30); CHLORIDE 100 mmol/L (98-107); CREATININE RESULT 1.13 mg/dL (0.52-1.25); GLUCOSE 220 mg/dL (75-110); TOTAL PROTEIN 5.8 g/dL (6.3-8.2)
[2017-09-25 12:17] LABS: BILIRUBIN,TOTAL < 0.1 mg/dL (0.2-1.3)
--- NOTE | 2017-09-25 20:26 | PDOC PROGRESS REPORT ---
Subjective Progress Note for:: 09/25/17 Subjective:: Patient was seen by the bedside, she feels much better, she is no more wheezing the cellulitis of the right foot is virtually resolved. She will be discharged home in the morning Reason For Visit: COPD, OSTEOMYELITIS OF RIGHT FOOT Physical Exam Vital Signs: Temp Pulse Resp BP Pulse Ox 98.3 F 81 18 147/72 H 94 09/25/17 15:05 09/25/17 19:00 09/25/17 15:05 09/25/17 15:05 09/25/17 15:05 Intake & Output 09/24/17 09/25/17 09/26/17 06:59 06:59 06:59 Intake Total 4105 3593 1642 Output Total 600 1200 800 Balance 3505 2393 842 Weight 68.2 kg 66.7 kg General appearance: PRESENT: no acute distress Eye exam: PRESENT: PERRLA Respiratory exam: PRESENT: clear to auscultation meaghan Cardiovascular exam: PRESENT: +S1, +S2 GI/Abdominal exam: PRESENT: soft Results Laboratory Results: 09/25/17 11:48 09/25/17 11:48 09/25/17 09/25/17 11:48 11:48 WBC 18.6 H RBC 3.68 L Hgb 11.3 L Hct 34.2 L MCV 93 MCH 30.6 MCHC 33.0 RDW 13.3 Plt Count 399 Seg Neutrophils % 94.0 H Lymphocytes % 2.9 L Monocytes % 3.0 Eosinophils % 0.0 Basophils % 0.1 Absolute Neutrophils 17.4 H Absolute Lymphocytes 0.5 Absolute Monocytes 0.6 Absolute Eosinophils 0.0 Absolute Basophils 0.0 Sodium 137.0 Potassium 4.0 Chloride 100 Carbon Dioxide 24 Anion Gap 13 BUN 43 H Creatinine 1.13 Est GFR ( Amer) > 60 Est GFR (Non-Af Amer) 50 L Glucose 220 H Calcium 8.8 Total Bilirubin < 0.1 L AST 12 L ALT 27 Alkaline Phosphatase 45 Total Protein 5.8 L Albumin 3.2 L Impressions: Chest X-Ray 09/22/17 00:00 IMPRESSION: EARLY INFILTRATE IN THE LEFT LOWER LOBE. Lower Extremity MRI 09/23/17 11:57 IMPRESSION: Mild soft tissue swelling. No occult fractures. Assessment & Plan - Diagnosis (1) Acute exacerbation of chronic obstructive pulmonary disease (COPD) Is this a current diagnosis for this admission?: Yes (2) Cellulitis of right foot Is this a current diagnosis for this admission?: Yes (3) Left lower lobe pneumonia Qualifiers: Pneumonia type: due to unspecified organism Qualified Code(s): J18.1 - Lobar pneumonia, unspecified organism Is this a current diagnosis for this admission?: Yes (4) Type 2 diabetes mellitus Qualifiers: Diabetes mellitus complication status: without complication Diabetes mellitus intermediate insulin use: without intermediate use Qualified Code(s): E11.9 - Type 2 diabetes mellitus without complications Is this a current diagnosis for this admission?: Yes (5) Nicotine dependence, cigarettes, with other nicotine-induced disorders Is this a current diagnosis for this admission?: Yes (6) Respiratory alkalosis Is this a current diagnosis for this admission?: Yes (7) Steroid-induced hyperglycemia Is this a current diagnosis for this admission?: Yes
--- NOTE | 2017-09-25 20:30 | PDOC DISCHARGE SUMMARY ---
General - Admit/Disc Date/PCP Admission Date/Primary Care Provider: 09/22/17 20:29 SHUBHAM ESCOBEDO MD Discharge Date: 09/26/17 - Discharge Diagnosis (1) Acute exacerbation of chronic obstructive pulmonary disease (COPD) Is this a current diagnosis for this admission?: Yes (2) Cellulitis of right foot Is this a current diagnosis for this admission?: Yes (3) Left lower lobe pneumonia Is this a current diagnosis for this admission?: Yes (4) Type 2 diabetes mellitus Is this a current diagnosis for this admission?: Yes (5) Nicotine dependence, cigarettes, with other nicotine-induced disorders Is this a current diagnosis for this admission?: Yes (6) Respiratory alkalosis Is this a current diagnosis for this admission?: Yes (7) Steroid-induced hyperglycemia Is this a current diagnosis for this admission?: Yes - Additional Information Prescriptions: Levofloxacin [Levaquin 750 mg Tablet] 750 mg PO QHS #10 tablet Prednisone 40 mg PO DAILY #20 tablet Home Medications: Allopurinol [Zyloprim 300 mg Tablet] 300 mg PO DAILY 09/23/17 Atorvastatin Calcium [Lipitor 40 mg Tablet] 40 mg PO DAILY 09/23/17 Lisinopril/Hydrochlorothiazide [Lisinopril-Hctz 20-12.5 mg Tab] 1 each PO Q12 Metformin HCl [Glucophage] 1,000 mg PO Q12 09/23/17 Omeprazole 20 mg PO DAILY 09/23/17 Sour Gutierrez Extract [Tart Gutierrez Extract] 1,200 mg PO DAILY 09/23/17 Levofloxacin [Levaquin 750 mg Tablet] 750 mg PO QHS #10 tablet 09/25/17 Prednisone 40 mg PO DAILY #20 tablet 09/25/17 History of Present Illness History of Present Illness: ANUPAM MENON is a 57 year old female, she has a history of type 2 diabetes mellitus, gout, tobacco dependence, she came to the office for evaluation of shortness of breath, cough, redness and pain of the right foot. She was seen and evaluated in the office, on inspection of the right foot there is swelling and erythema of the right foot with tenderness on palpation. I could not rule out osteomyelitis versus gout versus cellulitis in the office, I thought she would need MRI of the foot to differentiate which of this condition is predominant. She also was audibly wheezing, shortness of breath and cough. The cough is productive of sputum, she was admitted directly from the office into the hospital for evaluation and management of her symptoms because of the many constellation of symptoms and signs including possible pneumonia/COPD and possible cellulitis of the right foot. The chest x-ray that was done suggest early pneumonia in the left lower lobe, the ABG on room air, pH is 7.45 PCO2 45.7 bicarbonate 31, consistent with respiratory alkalosis with relative hypoxemia Hospital Course Hospital Course: Patient was admitted for the management of acute COPD exacerbation,pneumonia , cellulitis of the right foot. She was treated with IV antibiotic, Levaquin, and Solu-Medrol. Acute osteomyelitis of the right foot was suspected, MRI of the foot was obtained, there was no osteomyelitis, the findings was consistent with cellulitis, with treatment there was complete resolution of patient's symptoms. She developed acute kidney injury this was thought to be secondary to the intravenous Toradol that she was given, she also had steroid induced hypoglycemia. Physical Exam Vital Signs: Temp Pulse Resp BP Pulse Ox 98.3 F 81 18 147/72 H 94 09/25/17 15:05 09/25/17 19:00 09/25/17 15:05 09/25/17 15:05 09/25/17 15:05 Intake & Output 09/24/17 09/25/17 09/26/17 06:59 06:59 06:59 Intake Total 4105 3593 1642 Output Total 600 1200 800 Balance 3505 2393 842 Weight 68.2 kg 66.7 kg General appearance: PRESENT: no acute distress, well-developed, well-nourished Head exam: PRESENT: atraumatic, normocephalic Eye exam: PRESENT: conjunctiva pink, EOMI, PERRLA Ear exam: PRESENT: normal external ear exam Mouth exam: PRESENT: moist, tongue midline Neck exam: PRESENT: full ROM Respiratory exam: PRESENT: clear to auscultation meaghan Cardiovascular exam: PRESENT: RRR, +S1, +S2 Pulses: PRESENT: normal dorsalis pedis pul, +2 pedal pulses bilateral Vascular exam: PRESENT: normal capillary refill GI/Abdominal exam: PRESENT: normal bowel sounds, soft Rectal exam: PRESENT: deferred Neurological exam: PRESENT: alert, CN II-XII grossly intact Psychiatric exam: PRESENT: appropriate affect, normal mood Skin exam: PRESENT: dry, intact, warm. ABSENT: cyanosis, rash Results Laboratory Results: 09/25/17 11:48 09/25/17 11:48 09/25/17 09/25/17 11:48 11:48 WBC 18.6 H RBC 3.68 L Hgb 11.3 L Hct 34.2 L MCV 93 MCH 30.6 MCHC 33.0 RDW 13.3 Plt Count 399 Seg Neutrophils % 94.0 H Lymphocytes % 2.9 L Monocytes % 3.0 Eosinophils % 0.0 Basophils % 0.1 Absolute Neutrophils 17.4 H Absolute Lymphocytes 0.5 Absolute Monocytes 0.6 Absolute Eosinophils 0.0 Absolute Basophils 0.0 Sodium 137.0 Potassium 4.0 Chloride 100 Carbon Dioxide 24 Anion Gap 13 BUN 43 H Creatinine 1.13 Est GFR ( Amer) > 60 Est GFR (Non-Af Amer) 50 L Glucose 220 H Calcium 8.8 Total Bilirubin < 0.1 L AST 12 L ALT 27 Alkaline Phosphatase 45 Total Protein 5.8 L Albumin 3.2 L Impressions: Chest X-Ray 09/22/17 00:00 IMPRESSION: EARLY INFILTRATE IN THE LEFT LOWER LOBE. Lower Extremity MRI 09/23/17 11:57 IMPRESSION: Mild soft tissue swelling. No occult fractures.
[2017-09-25] MEDS ORDERED: PREDNISONE 20 MG TABLET PO ONE (21:00)
[2017-09-25] MEDS: LEVOFLOXACIN 750 MG TABLET PO SCH (21:22)
[2017-09-26] MEDS: INSULIN LISPRO 100 UNIT/ML 3 ML VIAL SUBCUT PRN (00:43)
[2017-09-26] MEDS: LANSOPRAZOLE 15 MG TAB.RAP.DR PO SCH (06:59)
[2017-09-26] MEDS: METFORMIN HCL 500 MG TABLET PO SCH (07:05)
[2017-09-26 08:42] VITALS: BP 191/84
[2017-09-26] MEDS: HYDROCHLOROTHIAZIDE 12.5 MG CAPSULE PO SCH (08:47)
[2017-09-26] MEDS: NICOTINE 21 MG/24 HR PATCH.TD24 TD SCH (08:47)
[2017-09-26] MEDS: ALLOPURINOL 300 MG TABLET PO SCH (08:47)
[2017-09-26] MEDS: LISINOPRIL 10 MG TABLET PO SCH (08:48)
[2017-09-26] MEDS ORDERED: PREDNISONE 20 MG TABLET PO SCH (10:00)
[2017-09-26] MEDS ORDERED: ATORVASTATIN CALCIUM 40 MG TABLET PO SCH (22:00)
== END 2017-09-26 09:15 | disposition home or self-care (01) | DRG 190 ==
LOC: 3N 20:29
PROVIDERS: ADMIT Internal Medicine; ATTEND Internal Medicine
DX: J44.0 Chronic obstructive pulmonary disease with (acute) lower respiratory infection (principal); J18.9 Pneumonia, unspecified organism; L03.115 Cellulitis of right lower limb; E87.3 Alkalosis; N17.9 Acute kidney failure, unspecified; J44.1 Chronic obstructive pulmonary disease with (acute) exacerbation; E78.5 Hyperlipidemia, unspecified; I10 Essential (primary) hypertension; E11.9 Type 2 diabetes mellitus without complications; N14.1 Nephropathy induced by other drugs, medicaments and biological substances; T39.8X5A Adverse effect of other nonopioid analgesics and antipyretics, not elsewhere classified, initial encounter; F17.210 Nicotine dependence, cigarettes, uncomplicated; Y92.9 Unspecified place or not applicable; Z28.21 Immunization not carried out because of patient refusal
CPT/HCPCS: 36415; 36600; 71010; 80048; 80053; 80076; 81001; 82803; 82962; 83036; 83605; 84439; 84443; 85025; 94640; J1815; J1885; J1956; J2930; J7030; J7512; J7620

== ENCOUNTER → 2017-12-02 | Outpatient (CLI) | payer MEDICAID ==
--- NOTE | 2017-12-02 14:01 | RADIOLOGY REPORT (SQ) ---
EXAM DESCRIPTION: CTA CHEST COMPLETED DATE/TIME: 12/02/2017 1:46 pm REASON FOR STUDY: SOB (R06.02) R06.02 SHORTNESS OF BREATH COMPARISON: Chest films 09/22/2017, 03/17/2017, 11/30/2012 TECHNIQUE: CT scan of the chest performed using helical scanning technique with dynamic intravenous contrast injection. Images reviewed with lung, soft tissue and bone windows. Reconstructed coronal and sagittal MPR images reviewed. Additional 3 dimensional post-processing performed to develop Maximal Intensity Projection images (VA P). All images stored on PACS. All CT scanners at this facility use dose modulation, iterative reconstruction, and/or weight based d osing when appropriate to reduce radiation dose to as low as reasonably achievable (ALARA). [facility]: Dose Right [facility]: CareDose [facility]: Dose Right [facility]: Teradose 4D [facility]: Ctrax CONTRAST TYPE AND DOSE: contrast/concentration: Isovue 370.00 mg/ml; Total Contrast Delivered: 60.0 ml; Total Saline Delivered: 105.0 ml Contrast bolus adequate for pulmonary arteries and aorta. RENAL FUNCTION: Creatinine 0.9 RADIATION DOSE: CT Rad equipment meets quality standard of care and radiation dose reduction techniq ues were employed. CTDIvol: 9.0 - 11.3 mGy. DLP: 341 mGy-cm. . LIMITATIONS: None. FINDINGS: LUNGS AND PLEURA: Patchy bilateral airspace disease in the upper lobes, and medial right l debi base question bilateral early or developing pneumonia. AORTA AND GREAT VESSELS: No aneurysm. No thoracic aortic dissection. HEART: No pericardial effusion. No significant coronary artery calcifications. PULMONARY ARTERIES: No emboli visualized in the main pulmonary arteries or the segmental branches. HILAR AND MEDIASTINAL STRUCTURES: No identified masses or abnormal nodes. HARDWARE: Clips right upper quadrant post cholecystectomy UPPER ABDOMEN: No significant findings. Limited exam. THYROID AND OTHER SOFT TISSUES: No masses. No adenopathy. BONES: No acute or significant finding. 3D MIPS: Confirm above findings. OTHER: No other significant finding. IMPRESSION: No CT angio evidence of acute pulmonary emboli or thoracic aortic dissection. Patchy multifocal airspace disease in the upper lobes and right medial lung base, question early or d eveloping pneumonia COMMENT: Quality ID # [id number]: Final reports with documentation of one or more dose reduction techniques (e.g., Automated exposure control, adjustment of the mA and/or kV according to patient size, use of iterative reconstruction technique) TECHNICAL DOCUMENTATION: JOB ID: [id number] [employer] [facility] [employer]- All Rights Reserved
== END ==
LOC: RAD 13:15
PROVIDERS: ATTEND Internal Medicine
DX: R06.02 Shortness of breath (principal)
CPT/HCPCS: 71275; 82565

== ENCOUNTER 2018-03-28 19:06 | Emergency (ER) | payer MEDICAID ==
[2018-03-28] MEDS ORDERED: METHYLPREDNISOLONE INJ 125 MG/2 ML SDV IV ONE (19:40)
[2018-03-28] MEDS ORDERED: IPRATROPIUM/ALBUTEROL 0.5-2.5 MG/3 ML AMPUL NEB ONE ×3 (19:40→21:36)
[2018-03-28] MEDS ORDERED: AZITHROMYCIN INJ 500 MG VIAL IV ONE (19:41)
--- NOTE | 2018-03-28 19:44 | ER Document Report ---
ED Medical Screen (RME) - General Chief Complaint: Shortness Of Breath Stated Complaint: COUGH, DIFFICULTY OF BREATHING Time Seen by Provider: 03/28/18 19:38 Notes: 57-year-old female to emergency departm Does have COPD and gets frequent exacerbations but has never had the facial pain this before. Has been having large amount of thick green's sputum and mucus from the nose. Cannot seem to catch her breath today. Patient does smoke. I have greeted and performed a rapid initial assessment of this patient. A comprehensive ED assessment and evaluation of the patient, analysis of test results and completion of the medical decision making process will be conducted by additional ED providers. TRAVEL OUTSIDE OF THE [place] IN LAST 30 DAYS: No - HPI Onset: Yesterday - Related Data Allergies/Adverse Reactions: No Known Allergies Allergy (Verified 03/17/17 13:49) Past Medical History - General Information source: Patient - Social History Cigarette use (# per day): Yes Chew tobacco use (# tins/day): No Frequency of alcohol use: None Drug Abuse: None Lives with: Family Family history: Hypertension - Past Medical History Cardiac Medical History: Reports: Hx Hypercholesterolemia, Hx Hypertension - NONCOMPLIANT WITH F/U Pulmonary Medical History: Reports: Hx Asthma, Hx Bronchitis, Hx COPD Endocrine Medical History: Reports: Hx Diabetes Mellitus Type 2 Renal/ Medical History: Denies: Hx Peritoneal Dialysis Past Surgical History: Reports: Hx Cholecystectomy, Hx Tubal Ligation - Immunizations Hx Diphtheria, Pertussis, Tetanus Vaccination: Yes History of Influenza Vaccine for 07/2017 - 12/2017 Season: No Review of Systems - Review of Systems Constitutional: Fever. denies: Malaise, Weakness EENT: Eye pain, Nose discharge, Sinus pressure, Sinus discharge Cardiovascular: Dyspnea. denies: Chest pain, Palpitations, Heart racing Respiratory: Cough, Short of breath, Wheezing Gastrointestinal: denies: Abdominal pain, Diarrhea, Nausea, Vomiting Genitourinary: denies: Burning, Dysuria, Discharge Musculoskeletal: denies: Back pain, Joint pain, Muscle pain Skin: denies: Dryness, Lesions, Lumps, Rash Neurological/Psychological: Headaches. denies: Weakness, Numbness Physical Exam - Vital signs Vitals: Temp Pulse Resp BP Pulse Ox 98.3 F 102 H 26 H 185/89 H 94 03/28/18 19:32 03/28/18 19:32 03/28/18 19:32 03/28/18 19:32 03/28/18 19:32 Interpretation: Tachypneic. No: Hypoxic, Febrile - General General appearance: Appears well, Alert - HEENT Head: Normocephalic, Atraumatic Eyes: Other - Tenderness and puffiness under bilateral eyes and maxillary sinuses. Pupils: PERRL Nasal: Clear rhinorrhea Mouth/Lips: Normal Mucous membranes: Normal Neck: Normal - Respiratory Respiratory status: No respiratory distress Chest status: Nontender Breath sounds: Decreased air movement, Nonproductive cough, Wheezing Chest palpation: Normal - Cardiovascular Rhythm: Tachycardia Heart sounds: Normal auscultation Murmur: No - Back Back: Normal, Nontender - Skin Skin Temperature: Warm Skin Moisture: Dry Skin Color: Normal Course - Vital Signs Vital signs: Temp Pulse Resp BP Pulse Ox 98.3 F 102 H 26 H 185/89 H 94 03/28/18 19:32 03/28/18 19:32 03/28/18 19:32 03/28/18 19:32 03/28/18 19:32 Doctor's Discharge - Discharge Referrals: SHUBHAM ESCOBEDO MD [Primary Care Provider] - Follow up as needed
--- NOTE | 2018-03-28 20:29 | RADIOLOGY REPORT (SQ) ---
EXAM DESCRIPTION: CHEST 2 VIEWS COMPLETED DATE/TIME: 03/28/2018 8:21 pm REASON FOR STUDY: sob COMPARISON: 03/17/2017 EXAM PARAMETERS: NUMBER OF VIEWS: two views TECHNIQUE: Digital Frontal and Lateral radiographic views of the chest acquired. RADIATION DOSE: NA LIMITATIONS: none FINDINGS: LUNGS AND PLEURA: No opacities, masses or pneumothorax. No pleural effusion. MEDIASTINUM AND HILAR STRUCTURES: No masses or contour abnormalities. HEART AND VASCULAR STRUCTURES: Heart normal size. No evidence for failure. BONES: No acute findings. HARDWARE: None in the chest. OTHER: No other significant finding. IMPRESSION: NO ACUTE RADIOGRAPHIC FINDING IN THE CHEST. TECHNICAL DOCUMENTATION: JOB ID: [id number] [employer]- All Rights Reserved Reading location - IP/workstation name: [email or web address]
[2018-03-28] MEDS ORDERED: MAGNESIUM SULFATE/D5W 1 GM/100 ML RTUPB IV ONE ×2 (20:51→21:35)
--- NOTE | 2018-03-28 20:52 | ER Document Report ---
ED General - General Chief Complaint: Shortness Of Breath Stated Complaint: COUGH, DIFFICULTY OF BREATHING Time Seen by Provider: 03/28/18 19:38 Mode of Arrival: Ambulatory Information source: Patient Notes: This is a 57-year-old female with a history of COPD who presents to the emergency room with wheezing, shortness of breath, sinus discharge and chills. TRAVEL OUTSIDE OF THE [place] IN LAST 30 DAYS: No - HPI Onset: This morning Onset/Duration: Gradual Quality of pain: No pain Severity: None Associated symptoms: Chills, Nonproductive cough, Shortness of breath Exacerbated by: Denies Relieved by: Denies Similar symptoms previously: Yes Recently seen / treated by doctor: No - Related Data Allergies/Adverse Reactions: No Known Allergies Allergy (Verified 03/17/17 13:49) Past Medical History - General Information source: Patient - Social History Smoking Status: Current Every Day Smoker Cigarette use (# per day): Yes - 1 pack per day since age 18 Chew tobacco use (# tins/day): No Frequency of alcohol use: None Drug Abuse: None Lives with: Family Family History: Reviewed & Not Pertinent Patient has suicidal ideation: No Patient has homicidal ideation: No - Past Medical History Cardiac Medical History: Reports: Hx Hypercholesterolemia, Hx Hypertension - NONCOMPLIANT WITH F/U Pulmonary Medical History: Reports: Hx Asthma, Hx Bronchitis, Hx COPD Endocrine Medical History: Reports: Hx Diabetes Mellitus Type 2 Renal/ Medical History: Denies: Hx Peritoneal Dialysis Past Surgical History: Reports: Hx Cholecystectomy, Hx Tubal Ligation - Immunizations Hx Diphtheria, Pertussis, Tetanus Vaccination: Yes Hx Pneumococcal Vaccination: 10/13/00 Review of Systems - Review of Systems Constitutional: denies: Chills, Fever EENT: No symptoms reported Cardiovascular: No symptoms reported Respiratory: See HPI Gastrointestinal: No symptoms reported Genitourinary: No symptoms reported Female Genitourinary: No symptoms reported Musculoskeletal: No symptoms reported Skin: No symptoms reported Hematologic/Lymphatic: No symptoms reported Neurological/Psychological: No symptoms reported Physical Exam - Vital signs Vitals: Temp Pulse Resp BP Pulse Ox 98.3 F 102 H 26 H 185/89 H 94 03/28/18 19:32 03/28/18 19:32 03/28/18 19:32 03/28/18 19:32 03/28/18 19:32 Notes: Physical exam: GENERAL: 57-year-old female, alert and oriented 3, no acute distress HEAD: Atraumatic, normocephalic. EYES: Pupils equal round and reactive to light, extraocular movements intact, sclera anicteric, conjunctiva are normal. ENT: TMs normal, nares patent, oropharynx clear without exudates. Moist mucous membranes. NECK: Normal range of motion, supple without obvious mass or JVD. LUNGS: Bilateral wheezing, accessory muscle use HEART: Regular rate and rhythm without murmurs, rubs or gallops. ABDOMEN: Soft, normoactive bowel sounds. No tenderness to palpation. No guarding, no rebound. No masses appreciated. EXTREMITIES: Normal range of motion, no pitting or edema. No clubbing or cyanosis. NEUROLOGICAL: Cranial nerves II through XII grossly intact. Normal speech, moving all extremities. PSYCH: Normal mood, normal affect. SKIN: Warm, Dry, normal turgor, no rashes or lesions noted. Course - Re-evaluation Re-evalutation: 03/29/18 00:15 Patient was given oral KCl and IV magnesium while in the ER. She was given IV azithromycin. She was given IV Solu-Medrol, dual nebs. She improved clinically and was requesting to go home. She was ambulated around the ER and stated that she felt much better and still very request to go home. I have given her good instructions to follow-up if worse. - Vital Signs Vital signs: Temp Pulse Resp BP Pulse Ox 98.3 F 102 H 26 H 185/89 H 94 03/28/18 19:32 03/28/18 19:32 03/28/18 19:32 03/28/18 19:32 03/28/18 19:32 - Laboratory Result Diagrams: 03/28/18 20:00 03/28/18 20:00 Laboratory results interpreted by me: 03/28/18 03/28/18 03/28/18 20:00 20:00 20:00 WBC 12.0 H Hgb 11.6 L Hct 34.5 L RDW 14.5 H Absolute Neutrophils 9.2 H Potassium 3.0 L* Chloride 93 L Carbon Dioxide 37 H Glucose 134 H Magnesium 1.5 L - Diagnostic Test Radiology reviewed: Image reviewed, Reports reviewed - Chest x-ray shows no obvious infiltrates Discharge - Discharge Clinical Impression: COPD exacerbation Condition: Stable Disposition: HOME, SELF-CARE Additional Instructions: As we discussed, your x-ray showed no obvious pneumonia, but with your symptoms , we will treat her with antibiotics. Take the doxycycline as prescribed: Start tomorrow. Continue with the prednisone: Start tomorrow Use the albuterol inhaler: 2 puffs every 6 hours as needed. You can use albuterol via the nebulizer every 6 hours as needed. percocet for pain. Follow-up with Dr. Escobedo this week. Return to the emergency room for worsening shortness of breath or any concerns or getting worse. The pain medicine you're taking prescribed as a narcotic. There are several important things you should know about this medicine: 1. This medicine contains Tylenol: It is important that you do not take Tylenol (or acetaminophen) while on this medicine. Tylenol is metabolized by the liver and taking too much Tylenol (acetaminophen) can lay to liver damage and even liver failure. 2. Taking narcotics for too long can lead to physical and mental dependence. Take this medicine only if really needed and in the lowest quantity to achieve pain relief. 3. Do not drink alcohol while on this medicine. Alcohol interacts with narcotics and the combination can be dangerous. 4. Do not drive or operate machinery while on this medicine. 5. Narcotics do cause constipation, so drink plenty of fluids and daily stool softeners. Prescriptions: Albuterol Sulfate [Albuterol Sulfate 5mg/1 mL] 5 mg PO Q4 PRN #7 ml PRN Reason: Doxycycline Hyclate 100 mg PO BID #20 capsule Oxycodone HCl/Acetaminophen [Percocet 5-325 mg Tablet] 1 tab PO ASDIR PRN #15 tab PRN Reason: Prednisone [Deltasone 20 mg Tablet] 3 tab PO DAILY 5 Days tablet Referrals: SHUBHAM ESCOBEDO MD [Primary Care Provider] - 03/30/18
[2018-03-28 20:58] LABS: ABSOLUTE BASOPHILS # (AUTO) 0.1 10^3/uL (0.0-0.2); ABSOLUTE EOSINOPHILS # (AUTO) 0.1 10^3/uL (0.0-0.6); ABSOLUTE LYMPHOCYTES (AUTO) 1.8 10^3/uL (0.5-4.7); ABSOLUTE MONOCYTES (AUTO) 0.8 10^3/uL (0.1-1.4); ABSOLUTE NEUT (AUTO) 9.2 10^3/uL (1.7-8.2); BASOPHILS % (AUTO) 0.6 % (0-2); EOSINOPHILS % (AUTO) 1.1 % (0-6); HEMATOCRIT 34.5 % (36.0-47.0); HEMOGLOBIN 11.6 g/dL (12.0-15.5); MEAN CORPUSCULAR HEMOGLOBIN 31.2 pg (27.0-33.4); MEAN CORPUSCULAR HGB CONC 33.6 g/dL (32.0-36.0); MEAN CORPUSCULAR VOLUME 93 fl (80-97); MONOCYTES % (AUTO) 6.4 % (3-13); PLATELET COUNT 343 10^3/uL (150-450); RED BLOOD COUNT 3.72 10^6/uL (3.72-5.28); RED CELL DISTRIBUTION WIDTH 14.5 % (11.5-14.0); SEGMENTED NEUTROPHILS % (AUTO) 76.9 % (42-78); TOTAL CELLS COUNTED % (AUTO) 100 %
[2018-03-28 21:07] LABS: ALANINE AMINOTRANSFERASE 13 U/L (9-52); ALBUMIN 3.5 g/dL (3.5-5.0); ALKALINE PHOSPHATASE 69 U/L (38-126); ANION GAP 11 (5-19); ASPARTATE AMINO TRANSFERASE 19 U/L (14-36); BILIRUBIN,DIRECT 0.3 mg/dL (0.0-0.4); BILIRUBIN,TOTAL 0.3 mg/dL (0.2-1.3); BLOOD UREA NITROGEN 17 mg/dL (7-20); CALCIUM 8.6 mg/dL (8.4-10.2); CARBON DIOXIDE 37 mmol/L (22-30); CHLORIDE 93 mmol/L (98-107); GLUCOSE 134 mg/dL (75-110); SODIUM 140.5 mmol/L (137-145); TOTAL PROTEIN 6.4 g/dL (6.3-8.2)
[2018-03-28] MEDS ORDERED: POTASSIUM CHLORIDE 10 MEQ TABLET.SA PO ONE ×2 (21:35→22:41)
[2018-03-29] MEDS ORDERED: OXYCODONE-ACETAMINOPHEN 5-325 MG TABLET PO ONE (00:07)
[2018-03-29] MEDS ORDERED: ALBUTEROL SULFATE HFA (90 MCG/PUFF) 8 GM MDI (1 MDI/ER DISP) IH PRN (00:08)
[2018-03-29 00:31] VITALS: BP 146/65
== END 2018-03-29 00:31 | disposition home or self-care (01) ==
LOC: ER 19:06
DX: J44.1 Chronic obstructive pulmonary disease with (acute) exacerbation (principal); R06.02 Shortness of breath; J34.89 Other specified disorders of nose and nasal sinuses; R05 Cough; F17.210 Nicotine dependence, cigarettes, uncomplicated; I10 Essential (primary) hypertension; E11.9 Type 2 diabetes mellitus without complications
CPT/HCPCS: 94640 ×2; 99285; 96375; 96365; 96367; 36415; 87040; 83735; 85025; 80053; 71046; J2930; J3475; J0456; J3490; J7620

== ENCOUNTER → 2018-05-14 | Outpatient (CLI) | payer MEDICAID ==
--- NOTE | 2018-05-14 11:15 | RADIOLOGY REPORT (SQ) ---
EXAM DESCRIPTION: FOOT LEFT 2 VIEWS COMPLETED DATE/TIME: 05/14/2018 11:05 am REASON FOR STUDY: PAIN IN LEFT FOOT M79.672 PAIN IN LEFT FOOT COMPARISON: None. NUMBER OF VIEWS: Two views. TECHNIQUE: AP and lateral radiographic images acquired of the left foot. LIMITATIONS: None. FINDINGS: MINERALIZATION: Normal. BONES: No acute fracture or dislocation. No worrisome bone lesions. There is a hallux valgus deform ity involving the great toe. JOINTS: No effusions. SOFT TISSUES: No soft tissue swelling. No foreign body. OTHER: No other significant finding. IMPRESSION: No acute findings. TECHNICAL DOCUMENTATION: JOB ID: [id number] [employer]- All Rights Reserved Reading location - IP/workstation name: [email or web address]
== END ==
LOC: OD 10:53
PROVIDERS: ATTEND Internal Medicine
DX: M79.672 Pain in left foot (principal)

== ENCOUNTER 2019-08-10 17:19 | Emergency (ER) | payer MEDICAID ==
[2019-08-10 17:31] VITALS: BP 188/84
[2019-08-10] MEDS ORDERED: CYCLOBENZAPRINE HCL 10 MG TABLET PO ONE (17:33)
[2019-08-10] MEDS ORDERED: KETOROLAC TROMETHAMINE 60 MG/2 ML SDV IM ONE (17:33)
--- NOTE | 2019-08-10 17:40 | ER Document Report ---
ED Medical Screen (RME) - General Chief Complaint: Neck Pain >24hrs old Stated Complaint: NECK PAIN Time Seen by Provider: 08/10/19 17:28 Primary Care Provider: SHUBHAM ESCOBEDO MD [Primary Care Provider] - Follow up as needed Mode of Arrival: Wheelchair Information source: Patient Notes: This 58-year-old female with history of COPD presents to the emergency depa rtment with bilateral neck pain for the past 2 days. Reports she just woke up with the neck pain. Denies trauma. Denies fever vomiting diarrhea. She was able to go to her job at [email or web address] both days but had to leave early today because of neck pain. 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 Patient reports she took 50 mg of Ultram without relief of symptoms. Patient reports it hurts to turn her head side to side. I have greeted and performed a rapid initial assessment of this patient. A comprehensive ED assessment and evaluation of the patient, analysis of test results and completion of the medical decision making process will be conducted by additional ED providers. Dictation of this chart was performed using voice recognition software; the refore, there may be some unintended grammatical errors. TRAVEL OUTSIDE OF THE [place] IN LAST 30 DAYS: No - Related Data Allergies/Adverse Reactions: No Known Allergies Allergy (Verified 02/03/19 08:18) Past Medical History - Social History Family history: Hypertension - Past Medical History Cardiac Medical History: Reports: Hx Hypercholesterolemia, Hx Hypertension - NONCOMPLIANT WITH F/U Pulmonary Medical History: Reports: Hx Asthma, Hx Bronchitis, Hx COPD Endocrine Medical History: Reports: Hx Diabetes Mellitus Type 2 Renal/ Medical History: Denies: Hx Peritoneal Dialysis Psychiatric Medical History: Denies: Hx Depression Past Surgical History: Reports: Hx Cholecystectomy, Hx Tubal Ligation - Immunizations Hx Diphtheria, Pertussis, Tetanus Vaccination: Yes Physical Exam - Vital signs Vitals: Temp Pulse Resp BP Pulse Ox 98.2 F 96 16 188/84 H 98 08/10/19 17:29 08/10/19 17:29 08/10/19 17:29 08/10/19 17:29 08/10/19 17:29 Course - Vital Signs Vital signs: Temp Pulse Resp BP Pulse Ox 98.2 F 96 16 188/84 H 98 08/10/19 17:29 08/10/19 17:29 08/10/19 17:29 08/10/19 17:29 08/10/19 17:29 Doctor's Discharge - Discharge Referrals: SHUBHAM ESCOBEDO MD [Primary Care Provider] - Follow up as needed
--- NOTE | 2019-08-10 18:51 | ER Document Report ---
HPI - HPI Time Seen by Provider: 08/10/19 17:28 Pain Level: 4 Context: Patient is a 58-year-old female who presents the emergency department with a chief complaint of bilateral neck pain. She states that her symptoms started about 2 days ago. She states that she might have slept wrong. She received Flexeril in triage and states that she feels better. She is able to move her neck now. Denies any numbness or tingling. - ROS Systems Reviewed and Negative: Yes All other systems reviewed and negative - CONSTITUTIONAL Constitutional: DENIES: Fever, Chills - NEURO Neurology: DENIES: Weakness - REPRODUCTIVE Reproductive: DENIES: : - MUSCULOSKELETAL Musculoskeletal: REPORTS: Neck Pain. DENIES: Swelling - DERM Skin Color: Normal Skin Problems: None Past Medical History - General Information source: Patient - Social History Smoking Status: Current Every Day Smoker Frequency of alcohol use: Occasional Drug Abuse: None Family History: Reviewed & Not Pertinent Patient has suicidal ideation: No Patient has homicidal ideation: No - Past Medical History Cardiac Medical History: Reports: Hx Hypercholesterolemia, Hx Hypertension - NONCOMPLIANT WITH F/U Pulmonary Medical History: Reports: Hx Asthma, Hx Bronchitis, Hx COPD Endocrine Medical History: Reports: Hx Diabetes Mellitus Type 2 Renal/ Medical History: Denies: Hx Peritoneal Dialysis Psychiatric Medical History: Denies: Hx Depression Past Surgical History: Reports: Hx Cholecystectomy, Hx Tubal Ligation - Immunizations Hx Diphtheria, Pertussis, Tetanus Vaccination: Yes Hx Pneumococcal Vaccination: 10/13/00 Vertical Provider Document - CONSTITUTIONAL Agree With Documented VS: Yes Exam Limitations: No Limitations General Appearance: No Apparent Distress - INFECTION CONTROL TRAVEL OUTSIDE OF THE [place] IN LAST 30 DAYS: No - HEENT HEENT: Atraumatic, Normocephalic, PERRLA - NECK Neck: Normal Inspection, Supple, Thyroid Normal. negative: Lymphadenopathy- Left, Lymphadenopathy-Right - RESPIRATORY Respiratory: Breath Sounds Normal, No Respiratory Distress - CARDIOVASCULAR Cardiovascular: Regular Rate, Regular Rhythm Pulses: Normal: Radial - MUSCULOSKELETAL/EXTREMETIES Musculoskeletal/Extremeties: FROM, Tender - Bilateral trapezius muscle - NEURO Level of Consciousness: Awake, Alert, Appropriate Motor/Sensory: No Motor Deficit, No Sensory Deficit - DERM Integumentary: Warm, Dry, No Rash Course - Re-evaluation Re-evalutation: 08/10/19 Patient states that she feels better now after receiving Flexeril and Toradol in triage. She will be sent home with Toradol. I have advised the patient to follow-up with her primary care provider to get a referral for physical therapy as her muscles in her shoulders are very tense, most likely the cause of her neck stiffness. I have a very low suspicion for meningitis. Patient denies any fever. Follow-up precautions were given. Verbal discharge instructions were given to the patient. They verbalized understanding. They are stable for discharge. - Vital Signs Vital signs: Temp Pulse Resp BP Pulse Ox 98.2 F 96 16 188/84 H 98 08/10/19 17:29 08/10/19 17:29 08/10/19 17:29 08/10/19 17:29 08/10/19 17:29 Discharge - Discharge Clinical Impression: Neck pain Condition: Stable Disposition: HOME, SELF-CARE Additional Instructions: You are seen today in the emergency department for neck pain. You are being sent home with Flexeril, medication to help relax muscles in your neck and in your shoulders. Follow-up with your primary care provider and see if he can get physical therapy. If you have worsening symptoms, please return to the emergency department. Prescriptions: Cyclobenzaprine HCl [Flexeril 10 mg Tablet] 10 mg PO TIDP PRN #15 tab PRN Reason: Forms: Return to Work Referrals: SHUBHAM ESCOBEDO MD [Primary Care Provider] - Follow up in 3-5 days
== END 2019-08-10 19:00 | disposition home or self-care (01) ==
LOC: ER 17:19
DX: M54.2 Cervicalgia (principal); F17.200 Nicotine dependence, unspecified, uncomplicated; E78.00 Pure hypercholesterolemia, unspecified; I10 Essential (primary) hypertension; E11.9 Type 2 diabetes mellitus without complications; Z90.49 Acquired absence of other specified parts of digestive tract; Z98.51 Tubal ligation status
CPT/HCPCS: 99283; 96374; J3490; J1885

== ENCOUNTER 2019-12-23 03:50 | Emergency (ER) | payer MEDICAID ==
[2019-12-23] MEDS ORDERED: AMLODIPINE BESYLATE 10 MG TABLET PO ONE (05:24)
[2019-12-23] MEDS ORDERED: HYDROCODONE/ACETAMINOPHEN 5-325 MG TABLET PO ONE (05:30)
--- NOTE | 2019-12-23 06:34 | ER Document Report ---
HPI - HPI Time Seen by Provider: 12/23/19 05:20 Pain Level: 2 Context: 59-year-old female presents with left foot pain. Patient states this is been ongoing for about 2 weeks and states she was recently diagnosed with neuropathy and placed on gabapentin that she has been slowly titrating up per her primary care doctors recommendations. Patient states today she was standing at work for over 7 hours and then went to a sporting event and started having worsening pain . Patient denies any fever or injury. Patient states she does have a history of pseudogout but however this feels different. - REPRODUCTIVE Reproductive: DENIES: : - MUSCULOSKELETAL Musculoskeletal: REPORTS: Extremity pain - left foot - DERM Skin Color: Normal, [place] Past Medical History - Social History Smoking Status: Current Every Day Smoker Chew tobacco use (# tins/day): No Frequency of alcohol use: Occasional Drug Abuse: None Family History: Reviewed & Not Pertinent Patient has suicidal ideation: No Patient has homicidal ideation: No - Past Medical History Cardiac Medical History: Reports: Hx Hypercholesterolemia, Hx Hypertension - NONCOMPLIANT WITH F/U Pulmonary Medical History: Reports: Hx Asthma, Hx Bronchitis, Hx COPD Endocrine Medical History: Reports: Hx Diabetes Mellitus Type 2 Renal/ Medical History: Denies: Hx Peritoneal Dialysis Psychiatric Medical History: Denies: Hx Depression Past Surgical History: Reports: Hx Cholecystectomy, Hx Tubal Ligation - Immunizations Hx Diphtheria, Pertussis, Tetanus Vaccination: Yes Hx Pneumococcal Vaccination: 10/13/00 Vertical Provider Document - CONSTITUTIONAL Agree With Documented VS: Yes Notes: GENERAL: Well-appearing, well-nourished and in no acute distress. HEAD: Atraumatic, normocephalic. EYES: Extraocular movements intact, sclera anicteric, conjunctiva are normal. NECK: Normal range of motion, supple without lymphadenopathy or JVD. Left foot: mild swelling to lateral aspect with tenderness to lateral aspect. Distal pedal pulses 2+. Toes ROM Intact. No erythema. No malleolar tenderness. NEUROLOGICAL: Cranial nerves II through XII grossly intact. Normal speech, normal gait. PSYCH: Normal mood, normal affect. SKIN: Warm, Dry, normal turgor, no rashes or lesions noted. - INFECTION CONTROL TRAVEL OUTSIDE OF THE [place] IN LAST 30 DAYS: No Course - Re-evaluation Re-evalutation: 12/23/19 nontoxic, well-appearing 59-year-old female presents with left foot pain. X-ray ordered. Distal neurovascular intact. Tenderness to lateral aspect with mild swelling. No erythema or color to suggest cellulitis. [place] ordered along with blood pressure medicine. Patient is noncompliant with her blood pressure medicines. 12/23/19 06:31 Pt feeling better. 12/23/19 07:11 XR negative for fracture. Pt given to-go norco pack and follow up with PCP. Return precautions given. All questions/concerns addressed prior to discharge. - Vital Signs Vital signs: Temp Pulse Resp BP Pulse Ox 97.7 F 88 16 189/69 H 98 12/23/19 06:30 12/23/19 06:30 12/23/19 06:30 12/23/19 06:30 12/23/19 06:30 Discharge - Discharge Clinical Impression: Left foot pain Condition: Stable Disposition: HOME, SELF-CARE Additional Instructions: Your x-ray did not show any fractures or breaks. Please take medication that was given to you as needed. Please follow-up with your primary care doctor for further narcotics/pain control. Return to ER for any worsening symptoms, including redness to area, feeling like your foot is hotter than usual, increased swelling, inability to walk on your foot, fever, or any other symptoms that are concerning to you. Forms: Special Work Note Referrals: SHUBHAM ESCOBEDO MD [Primary Care Provider] - Follow up in 3-5 days
--- NOTE | 2019-12-23 07:06 | RADIOLOGY REPORT (SQ) ---
EXAM DESCRIPTION: XR FOOT 3 OR MORE VIEWS COMPLETED DATE/TME: 12/23/2019 05:22 CLINICAL HISTORY: 59 years, Female, left foot pain COMPARISON: 05/14/2018 NUMBER OF VIEWS: Three TECHNIQUE: Three views of the left foot LIMITATIONS: None. FINDINGS: No acute fracture or dislocation. Hallux valgus deformity is again noted. No radiopaque foreign body. No large soft tissue swelling. Small plantar calcaneal spur. IMPRESSION: No acute fracture or dislocation copyright 2010 [employer]- All Rights Reserved
[2019-12-23] MEDS ORDERED: HYDROCODONE/ACETAMINOPHEN 5-325 MG (6 TAB/ER DISP) PO PRN (07:13)
[2019-12-23 07:24] VITALS: BP 181/65
== END 2019-12-23 07:24 | disposition home or self-care (01) ==
LOC: ER 03:50
DX: E11.40 Type 2 diabetes mellitus with diabetic neuropathy, unspecified (principal); M79.672 Pain in left foot; M79.89 Other specified soft tissue disorders; F17.200 Nicotine dependence, unspecified, uncomplicated; J44.9 Chronic obstructive pulmonary disease, unspecified; I10 Essential (primary) hypertension; Z91.14 Patient's other noncompliance with medication regimen
CPT/HCPCS: 99283

== ENCOUNTER 2020-02-10 16:44 | Emergency (ER) | payer MEDICAID ==
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
[2020-02-10] MEDS ORDERED: OXYCODONE-ACETAMINOPHEN 5-325 MG TABLET PO ONE ×2 (17:33→21:13)
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
[2020-02-10 18:13] LABS: ABSOLUTE BASOPHILS # (AUTO) 0.1 10^3/uL (0.0-0.2); ABSOLUTE LYMPHOCYTES (AUTO) 1.7 10^3/uL (0.5-4.7); ABSOLUTE MONOCYTES (AUTO) 0.6 10^3/uL (0.1-1.4); ABSOLUTE NEUT (AUTO) 6.3 10^3/uL (1.7-8.2); BASOPHILS % (AUTO) 0.9 % (0-2); EOSINOPHILS % (AUTO) 0.6 % (0-6); HEMATOCRIT 32.7 % (36.0-47.0); HEMOGLOBIN 11.3 g/dL (12.0-15.5); LYMPHOCYTES % (AUTO) 19.6 % (13-45); MEAN CORPUSCULAR HEMOGLOBIN 31.1 pg (27.0-33.4); MEAN CORPUSCULAR HGB CONC 34.5 g/dL (32.0-36.0); MEAN CORPUSCULAR VOLUME 90 fl (80-97); MONOCYTES % (AUTO) 7.3 % (3-13); PLATELET COUNT 253 10^3/uL (150-450); RED BLOOD COUNT 3.63 10^6/uL (3.72-5.28); RED CELL DISTRIBUTION WIDTH 15.1 % (11.5-14.0); SEGMENTED NEUTROPHILS % (AUTO) 71.6 % (42-78); TOTAL CELLS COUNTED % (AUTO) 100 %; WHITE BLOOD COUNT 8.8 10^3/uL (4.0-10.5)
--- NOTE | 2020-02-10 18:21 | EKG REPORT ---
SEVERITY:- NORMAL ECG - SINUS RHYTHM : Confirmed by: Imelda Gilbert MD 10-Feb-2020 18:20:49
[2020-02-10 18:24] LABS: A TYPE INFLUENZA AG NEGATIVE (NEGATIVE); B INFLUENZA AG NEGATIVE (NEGATIVE)
[2020-02-10 18:31] LABS: ALBUMIN 3.8 g/dL (3.5-5.0); ALKALINE PHOSPHATASE 83 U/L (38-126); ANION GAP 7 (5-19); ASPARTATE AMINO TRANSFERASE 18 U/L (14-36); BILIRUBIN,TOTAL 0.2 mg/dL (0.2-1.3); BLOOD UREA NITROGEN 16 mg/dL (7-20); CALCIUM 8.9 mg/dL (8.4-10.2); CARBON DIOXIDE 33 mmol/L (22-30); CHLORIDE 99 mmol/L (98-107); GLUCOSE 169 mg/dL (75-110); POTASSIUM 3.9 mmol/L (3.6-5.0); TOTAL PROTEIN 6.5 g/dL (6.3-8.2)
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
[2020-02-10 23:03] VITALS: BP 161/77
== END 2020-02-10 23:04 | disposition home or self-care (01) ==
LOC: ER 16:44
DX: S20.211A Contusion of right front wall of thorax, initial encounter (principal); S20.01XA Contusion of right breast, initial encounter; S30.1XXA Contusion of abdominal wall, initial encounter; V89.2XXA Person injured in unspecified motor-vehicle accident, traffic, initial encounter; R07.9 Chest pain, unspecified; J44.9 Chronic obstructive pulmonary disease, unspecified; I10 Essential (primary) hypertension; F17.210 Nicotine dependence, cigarettes, uncomplicated
CPT/HCPCS: 36415; 71045; 71260; 80053; 84484; 85025; 87070; 87804; 87880; 93005; 93010; 99285

== ENCOUNTER → 2020-05-08 | Outpatient (CLI) | payer MEDICAID ==
--- NOTE | 2020-05-08 10:44 | ER RDC ASSESSMENT REPORT ---
Intake - In the Last 14 days Have you traveled outside [place]?: No Have you been in close contact with someone CONFIRMED: Yes Worked in Healthcare?: No - Symptoms Subjective Fever([place] feverish): Yes Chills: No Muscule Aches: Yes Runny Nose: Yes Sore Throat: Yes Cough (New or worsening chronic cough): Yes Shortness of breath: Yes Nausea or Vomiting: Yes Headache: Yes Abdominal Pain: Yes Diarrhea(3 or more loose stools in last 24 hours): Yes - Do you have any of the following Chronic lung disease: Asthma or emphysema or COPD: Yes Chronic Lung Disease Comment: COPD Cystic Fibrosis: No Diabetes: Yes High Blood Pressure: Yes Cardiovascular Disease: Yes Chronic Kidney Disease: No Chronic Liver Disease: No Chronic blood disorder like Sickle Cell Disease: No Weak immune system due to disease or medication: No Neurologic condition that limits movement: No Developmental delay - Moderate to Severe: No Recent (within past 2 weeks) or current : No Morbid Obesity (>100 pounds over ideal weight): No Obesity Comment: Height 5 feet 0 inches weight 157 pounds - Objective Temperature: 98.8 F Pulse Rate: 98 Respiratory Rate: 20 Blood Pressure: 190/82 O2 Sat by Pulse Oximetry: 94 Objective: Given above, testing performed: If Testing Performed: Test Specimen Type Sent to General - General Information source: Patient Notes: Patient here at [facility] for COVID testing. Patient reports was recently exposed to somebody positive from a birthday [employer]. Started having symptoms last week on the fever as high as 103.4 muscle aches runny nose sore throat cough shortness of breath. Patient smokes half a pack a day and has a history of COPD patient reports symptoms with breathing worse than usual COPD exacerbation. Patient reports PCP is Dr. Das and plans to call him this morning. Patient's also has a history of high blood pressure and has not taken blood pressure medications this morning as well. Patient is here with grandchildren for testing who live with the grandmother and were at the same birthday [employer]. - Related Data Allergies/Adverse Reactions: No Known Allergies Allergy (Verified 02/03/19 08:18) Past Medical History - General Information source: Patient - Social History Smoking Status: Current Every Day Smoker Cigarette use (# per day): Yes - Half a pack a day Smoking Education Provided: Yes - Quit smoking Family History: Reviewed & Not Pertinent - Past Medical History Cardiac Medical History: Reports: Hx Hypercholesterolemia, Hx Hypertension - NONCOMPLIANT WITH F/U Pulmonary Medical History: Reports: Hx Asthma, Hx Bronchitis, Hx COPD, Hx Pneumonia Endocrine Medical History: Reports: Hx Diabetes Mellitus Type 2 - Diet controlled Renal/ Medical History: Denies: Hx Peritoneal Dialysis Psychiatric Medical History: Denies: Hx Depression Past Surgical History: Reports: Hx Cholecystectomy, Hx Tubal Ligation Physical Exam - General General appearance: Appears well, Alert In distress: None Notes: PHYSICAL EXAMINATION: GENERAL: Well-appearing and in no acute distress. HEAD: Atraumatic, normocephalic. EYES: sclera anicteric, conjunctiva are normal. ENT: nares patent. Moist mucous membranes. NECK: Normal range of motion, supple without lymphadenopathy LUNGS: CTAB and equal. No wheezes rales or rhonchi. Resp even and unlabored. faint expiratory wheeze noted through out improved slightly with dry non productive cough. HEART: Regular rate and rhythm without murmurs ABDOMEN: Soft, nontender, normal bowel sounds, no guarding. EXTREMITIES: No cyanosis. NEUROLOGICAL: Normal speech. PSYCH: Normal mood, normal affect. SKIN: Warm, Dry, normal turgor, Diagnostic Results Laboratory Results: Patient informed of negative rapid strep and negative rapid flu results. P ending strep culture pending COVID testing results. Patient provided instructions regarding COVID to include: As a person under investigation for Covid 19, the [place] department of Health and Human Services, division of public health advises you to adhere to the following guidance until your test results are reported to you. If your test result is positive, you will receive additional information from your provider and your local health department at that time. Remain at home until you are cleared by the health provider or public health authorities. Keep a log of visitors to your home, notify any visitors to your home of your isolation status. If you plan to move to a new address or leave the county, notify the local health department in your County. Call your doctor or seek care if you have an urgent medical need. Before seeking medical care, call ahead to get instructions from the provider before arriving at the medical office clinic or hospital. Notify them that you are being tested for the virus that causes Covid 19 so that arrangements can be made, as necessary, to prevent transmission to others in the healthcare setting. Next, notify the local health department in your county. If a medical emergency arises and you need to call 911, inform the first responders that you are being tested for the virus that causes Covid 19. Next, notify the local health department in your county. Patient Education/Counseling Counseling/Education: Patient presents with upper respiratory symptoms worrisome for possible Covid 1 9. Patient does not have emergency worring symptoms such as difficulty breathing, shortness of breath, chest pain, pressure, confusion or cyanosis. Patient appears suitable for discharge. Patient instructed to follow up with PCP kota Morales To ED for persistenet or worsening symptoms. Patient's vital signs are stable and patient is nontoxic in appearance. Good return precautions have been discussed with patient, patient verbalized understanding and is agreeable with discharge plan of care at this time. RDC Discharge - Discharge Clinical Impression: Encounter for screening laboratory testing for COVID-19 virus Condition: Stable Disposition: Home; Selfcare
[2020-05-08 12:25] LABS: A TYPE INFLUENZA AG NEGATIVE (NEGATIVE); B INFLUENZA AG NEGATIVE (NEGATIVE)
[2020-05-08 14:16] VITALS: BP 190/82
== END ==
LOC: RDC 09:26
PROVIDERS: ATTEND Nurse Practitioner Family
DX: Z20.828 Contact with and (suspected) exposure to other viral communicable diseases (principal); R50.9 Fever, unspecified; R05 Cough; R06.02 Shortness of breath; M79.10 Myalgia, unspecified site; R09.89 Other specified symptoms and signs involving the circulatory and respiratory systems; R11.0 Nausea; R51 Headache; R10.9 Unspecified abdominal pain; R19.7 Diarrhea, unspecified; J44.9 Chronic obstructive pulmonary disease, unspecified; E11.9 Type 2 diabetes mellitus without complications; I10 Essential (primary) hypertension; E78.00 Pure hypercholesterolemia, unspecified; I25.10 Atherosclerotic heart disease of native coronary artery without angina pectoris; F17.220 Nicotine dependence, chewing tobacco, uncomplicated; Z91.19 Patient's noncompliance with other medical treatment and regimen
CPT/HCPCS: 87070; 87880; 87635; 87804; C9803; 99201; 99211

== ENCOUNTER 2020-09-26 08:40 | Inpatient (IN) | payer MEDICAID ==
--- NOTE | 2020-09-26 10:33 | RADIOLOGY REPORT (SQ) ---
EXAM DESCRIPTION: CHEST SINGLE VIEW IMAGES COMPLETED DATE/TIME: 09/26/2020 10:17 am REASON FOR STUDY: chest pain COMPARISON: 02/10/2020 EXAM PARAMETERS: NUMBER OF VIEWS: One view. TECHNIQUE: Single frontal radiographic view of the chest acquired. RADIATION DOSE: NA LIMITATIONS: None. FINDINGS: LUNGS AND PLEURA: No opacities, masses or pneumothorax. No pleural effusion. MEDIASTINUM AND HILAR STRUCTURES: No masses. Contour normal. HEART AND VASCULAR STRUCTURES: Heart normal in size. Normal vasculature. BONES: No acute findings. HARDWARE: None in the chest. OTHER: No other significant finding. IMPRESSION: NO ACUTE RADIOGRAPHIC FINDING IN THE CHEST. TECHNICAL DOCUMENTATION: JOB ID: [id number] 2010 [employer]- All Rights Reserved Reading location - IP/workstation name: [email or web address]
[2020-09-26 10:35] LABS: ABSOLUTE LYMPHOCYTES (AUTO) 0.5 10^3/uL (0.5-4.7); ABSOLUTE MONOCYTES (AUTO) 0.5 10^3/uL (0.1-1.4); HEMATOCRIT 34.6 % (36.0-47.0); HEMOGLOBIN 11.6 g/dL (12.0-15.5); LYMPHOCYTES % (AUTO) 5.3 % (13-45); MEAN CORPUSCULAR HGB CONC 33.6 g/dL (32.0-36.0); MEAN CORPUSCULAR VOLUME 92 fl (80-97); MONOCYTES % (AUTO) 4.7 % (3-13); PLATELET COUNT 211 10^3/uL (150-450); RED BLOOD COUNT 3.76 10^6/uL (3.72-5.28); RED CELL DISTRIBUTION WIDTH 14.7 % (11.5-14.0); TOTAL CELLS COUNTED % (AUTO) 100 %
[2020-09-26] MEDS ORDERED: ASPIRIN 325 MG TABLET PO ONE (10:50)
--- NOTE | 2020-09-26 10:52 | ER Document Report ---
ED Cardiac - General Chief Complaint: Chest Pain Stated Complaint: SHORTNESS OF BREATH Time Seen by Provider: 09/26/20 10:27 Primary Care Provider: SHUBHAM ESCOBEDO MD [Primary Care Provider] - Follow up as needed Notes: HPI: 60-year-old female that presents today stating some substernal chest discomfort radiating to her left neck and left axillary region today while at work. It was not exertional. Transient shortness of breath. Nausea without vomiting. No calf pain, leg swelling, cough, shortness of breath, or fevers. Patient does have a history of high cholesterol, hypertension, and diabetes. No family history of early heart attacks or strokes. Patient is currently chest pain-free. ROS: See HPI All other review of systems reviewed and otherwise negative Reviewed vital signs and nursing note as charted by RN. PHYSICAL EXAM: CONSTITUTIONAL: Alert and oriented and responds appropriately to questions. Well-appearing; well-nourished HEAD: Normocephalic; atraumatic EYES: PERRL; Conjunctivae clear, sclerae non-icteric ENT: Normal nose; no rhinorrhea; moist mucous membranes; pharynx without lesions noted NECK: Supple without meningismus; non-tender; no cervical lymphadenopathy, no masses CARD: Regular rate and rhythm; no murmurs; symmetric distal pulses RESP: Normal chest excursion without splinting or tachypnea; breath sounds clear and equal bilaterally ABD/GI: Normal bowel sounds; non-distended; soft, non-tender; no palpable organomegaly or masses BACK: The back appears normal and is non-tender to palpation EXT: Normal ROM in all joints; non-tender to palpation; no edema SKIN: No acute lesions noted NEURO: CN 2-12 intact; 5/5 bilateral upper and lower extremity strength with sensation intact to light touch PSYCH: The patient's mood and manner are appropriate. Grooming and personal hygiene are appropriate. TRAVEL OUTSIDE OF THE [place] IN LAST 30 DAYS: No - Related Data Allergies/Adverse Reactions: No Known Allergies Allergy (Verified 09/26/20 09:09) Home Medications: bp medication. cholesterol. dm. allopurinol Past Medical History - Social History Smoking Status: Current Every Day Smoker Chew tobacco use (# tins/day): No Frequency of alcohol use: Occasional Drug Abuse: None Family History: Reviewed & Not Pertinent Patient has homicidal ideation: No - Past Medical History Cardiac Medical History: Reports: Hx Hypercholesterolemia, Hx Hypertension - NONCOMPLIANT WITH F/U Pulmonary Medical History: Reports: Hx Asthma, Hx Bronchitis, Hx COPD, Hx Pneumonia Endocrine Medical History: Reports: Hx Diabetes Mellitus Type 2 - Diet controlled Renal/ Medical History: Denies: Hx Peritoneal Dialysis Psychiatric Medical History: Denies: Hx Depression Past Surgical History: Reports: Hx Cholecystectomy, Hx Tubal Ligation - Immunizations Hx Diphtheria, Pertussis, Tetanus Vaccination: Yes Hx Pneumococcal Vaccination: 10/13/00 Physical Exam - Vital signs Vitals: Temp Pulse Resp BP Pulse Ox 97.8 F 79 18 171/86 H 99 09/26/20 08:54 09/26/20 08:54 09/26/20 08:54 09/26/20 08:54 09/26/20 08:54 Course - Re-evaluation Re-evalutation: Given the above history and physical we will obtain basic labs, cardiac panel, EKG, x-ray of the chest, and reassess. Given that the patient is not ta chycardic or hypoxic with currently no chest pain, I do believe PE and dissection to be unlikely. EKG shows heart of 74, normal sinus rhythm, normal axis, no obvious ST elevation or depression. Flattening T waves in aVL. 09/26/20 10:51 Initial labs as recorded. EKG as recorded. Still chest pain-free. Aspirin has been provided. 09/26/20 11:47 Labs and troponin as recorded. X-ray as recorded. I will admit the patient to the hospital for further evaluation and treatment given the story. Heart score calculated as a 4 given the patient's history. - Vital Signs Vital signs: Temp Pulse Resp BP Pulse Ox 97.8 F 79 10 L 171/86 H 100 09/26/20 08:54 09/26/20 08:54 09/26/20 10:01 09/26/20 08:54 09/26/20 10:01 - Laboratory Results Result Diagrams: 09/26/20 10:18 09/26/20 10:18 Laboratory Results Interpreted: 09/26/20 09/26/20 10:18 10:18 Hgb 11.6 L Hct 34.6 L RDW 14.7 H Lymph % (Auto) 5.3 L Absolute Neuts (auto) 9.0 H Seg Neutrophils % 90.0 H Sodium 136.7 L Carbon Dioxide 31 H Est GFR ( Amer) 58 L Est GFR (MDRD) Non-Af 48 L Glucose 159 H Critical Laboratory Results Reviewed: No Critical Results - Radiology Results Critical Radiology Results Reviewed: No Critical Results Discharge - Discharge Clinical Impression: Chest pain Qualifiers: Chest pain type: unspecified Qualified Code(s): R07.9 - Chest pain, unspecified Condition: Fair Disposition: ADMITTED OBSERVATION Admitting Provider: Pippa Unit Admitted: Telemetry Referrals: SHUBHAM ESCOBEDO MD [Primary Care Provider] - Follow up as needed
[2020-09-26 11:04] LABS: ALBUMIN 3.6 g/dL (3.5-5.0); ALKALINE PHOSPHATASE 77 U/L (38-126); ANION GAP 5 (5-19); ASPARTATE AMINO TRANSFERASE 15 U/L (14-36); BILIRUBIN,DIRECT 0.2 mg/dL (0.0-0.4); BILIRUBIN,TOTAL 0.4 mg/dL (0.2-1.3); BLOOD UREA NITROGEN 19 mg/dL (7-20); CALCIUM 8.6 mg/dL (8.4-10.2); CARBON DIOXIDE 31 mmol/L (22-30); CHLORIDE 101 mmol/L (98-107); CREATINE KINASE 51 U/L (30-135); GLUCOSE 159 mg/dL (75-110); POTASSIUM 3.9 mmol/L (3.6-5.0); TOTAL PROTEIN 6.4 g/dL (6.3-8.2)
[2020-09-26 11:16] LABS: TROPONIN I < 0.012 ng/mL
--- NOTE | 2020-09-26 14:19 | EKG REPORT ---
SEVERITY:- NORMAL ECG - SINUS RHYTHM : Confirmed by: Imelda Gilbert MD 26-Sep-2020 14:18:23
[2020-09-26] MEDS ORDERED: REGADENOSON INJ 0.4 MG/5 ML DISP.SYRIN IV ONE (15:03)
[2020-09-26] MEDS ORDERED: INFLUENZA QUAD (6MOS+) 2020-21 VAC 0.5 ML SYR IM ONE (16:45)
[2020-09-26] MEDS ORDERED: HEPARIN SOD (PORCINE) 1,000 UNIT/ML 10 ML VIAL IV ONE (18:00)
[2020-09-26] MEDS: ASCORBIC ACID 500 MG TABLET PO SCH (18:19)
[2020-09-26] MEDS: AZITHROMYCIN 250 MG TABLET PO SCH (18:19)
[2020-09-26] MEDS: CHOLECALCIFEROL (D3) 1,000 UNIT (25 MCG) TABLET PO SCH (18:19)
[2020-09-26] MEDS: ASPIRIN 81 MG TABLET, ENT COATED PO SCH (18:19)
[2020-09-26] MEDS: ZINC SULFATE 220 MG CAPSULE PO SCH (18:19)
[2020-09-26 19:40] LABS: ABSOLUTE MONOCYTES (AUTO) 0.6 10^3/uL (0.1-1.4); ABSOLUTE NEUT (AUTO) 8.3 10^3/uL (1.7-8.2); HEMATOCRIT 32.5 % (36.0-47.0); HEMOGLOBIN 10.7 g/dL (12.0-15.5); LYMPHOCYTES % (AUTO) 10.3 % (13-45); MEAN CORPUSCULAR HEMOGLOBIN 30.4 pg (27.0-33.4); MEAN CORPUSCULAR VOLUME 92 fl (80-97); MONOCYTES % (AUTO) 5.8 % (3-13); PLATELET COUNT 193 10^3/uL (150-450); RED BLOOD COUNT 3.53 10^6/uL (3.72-5.28); RED CELL DISTRIBUTION WIDTH 14.7 % (11.5-14.0); SEGMENTED NEUTROPHILS % (AUTO) 83.9 % (42-78); TOTAL CELLS COUNTED % (AUTO) 100 %; WHITE BLOOD COUNT 9.8 10^3/uL (4.0-10.5)
[2020-09-26 19:52] LABS: INTERNATIONAL RATION (INR) 0.94; PROTHROMBIN TIME 12.8 SEC (11.4-15.4)
[2020-09-26 19:53] LABS: FIBRINOGEN 371 mg/dL (209-497); PARTIAL THROMBOPLASTIN TIME 24.9 SEC (23.5-35.8)
[2020-09-26 19:55] LABS: D-DIMER 0.58 ug/mL (0.00-0.50)
[2020-09-26 20:04] LABS: C-REACTIVE PROTEIN 16.9 mg/L (<10.0); PHOSPHORUS 3.8 mg/dL (2.5-4.5)
[2020-09-26] MEDS ORDERED: PRAMIPEXOLE DI HCL 0.125 MG PO SCH (20:30)
[2020-09-26] MEDS ORDERED: (PENDING PHARMACY ID) (Omeprazole [Omeprazole] 20 MG Capsule.Dr) PO SCH (20:30)
--- NOTE | 2020-09-26 20:34 | PDOC H&P ---
History of Present Illness Admission Date/PCP: 09/26/20 17:51 SHUBHAM ESCOBEDO MD History of Present Illness: ANUPAM MENON is a 60 year old female, She has a history of type 2 diabetes mellitus, hypertension, recalcitrant smoker, COPD, she came to the emergency room today for evaluation of acute onset chest pain, feels like pressure, the pain radiates to the neck the back and the shoulder, associated with shortness of breath. The pain was not provoked by activity nor relieved by rest that would suggest typical angina but she has multiple risk factors for ischemic heart disease,The characteristic of the pain including pressure sensation, the pattern of radiation is very suspicious for cardiac related chest pain. Past Medical History Cardiac Medical History: Reports: Hyperlipidema, Hypertension - NONCOMPLIANT WITH F/U Pulmonary Medical History: Reports: Asthma, Bronchitis, Chronic Obstructive Pulmonary Disease (COPD), Pneumonia Endocrine Medical History: Reports: Diabetes Mellitus Type 2 - Diet controlled Psychiatric Medical History: Reports: Depression Past Surgical History Past Surgical History: Reports: Cholecystectomy, Tubal Ligation Social History Smoking Status: Current Every Day Smoker Cigarettes Packs Per Day: 1 Electronic Cigarette use?: No Number of Years Smokin Frequency of Alcohol Use: Occasional Hx Recreational Drug Use: No Drugs: Marijuana Hx Prescription Drug Abuse: No Family History Family History: Reviewed & Not Pertinent Parental Family History Reviewed: Yes Children Family History Reviewed: Yes Sibling(s) Family History Reviewed.: Yes Medication/Allergy Home Medications: Amlodipine Besylate [Norvasc 10 mg Tablet] 10 mg PO DAILY #30 tablet 02/07/19 Pramipexole Di-HCl [Mirapex] 0.125 mg PO DAILY #30 tablet 02/07/19 Clonidine HCl [Catapres 0.2 mg Tablet] 0.2 mg PO DAILY 09/26/20 Gabapentin 300 mg PO TID 09/26/20 Omeprazole 20 mg PO DAILY 09/26/20 Quetiapine Fumarate [Quetiapine Fumarate ER] 50 mg PO QHS 09/26/20 Tiotropium Br/Olodaterol HCl [Stiolto Respimat Inhal [place]] 2 puff IH DAILY 09/12 03/01 Allergies/Adverse Reactions: No Known Allergies Allergy (Verified 09/26/20 09:09) Review of Systems Constitutional: ABSENT: chills, fever(s), headache(s), weight gain, weight loss Eyes: ABSENT: visual disturbances Ears: ABSENT: hearing changes Cardiovascular: PRESENT: chest pain, dyspnea on exertion. ABSENT: edema, orthropnea, palpitations Respiratory: ABSENT: cough, hemoptysis Gastrointestinal: ABSENT: abdominal pain, constipation, diarrhea, hematemesis, hematochezia, nausea, vomiting Genitourinary: ABSENT: dysuria, hematuria Musculoskeletal: ABSENT: joint swelling Integumentary: ABSENT: rash, wounds Neurological: ABSENT: abnormal gait, abnormal speech, confusion, dizziness, focal weakness, syncope Psychiatric: ABSENT: anxiety, depression, homidical ideation, suicidal ideation Endocrine: ABSENT: cold intolerance, heat intolerance, menstrual abnormalities, polydipsia, polyuria Hematologic/Lymphatic: ABSENT: easy bleeding, easy bruising, lymphadenopathy Physical Exam Vital Signs: Temp Pulse Resp BP Pulse Ox 98.0 F 55 L 18 194/88 H 98 09/26/20 19:38 09/26/20 19:38 09/26/20 19:38 09/26/20 19:38 09/26/20 19:38 Intake & Output 09/25/20 09/26/20 09/27/20 06:59 06:59 06:59 Intake Total 260 Balance 260 Weight 71 kg General appearance: PRESENT: no acute distress, well-developed, well-nourished Head exam: PRESENT: atraumatic, normocephalic Eye exam: PRESENT: conjunctiva pink, EOMI, PERRLA Ear exam: PRESENT: normal external ear exam Mouth exam: PRESENT: moist, tongue midline Neck exam: PRESENT: full ROM Respiratory exam: PRESENT: prolonged expiratory phas Cardiovascular exam: PRESENT: RRR, +S1, +S2 Pulses: PRESENT: normal dorsalis pedis pul, +2 pedal pulses bilateral Vascular exam: PRESENT: normal capillary refill GI/Abdominal exam: PRESENT: normal bowel sounds, soft Rectal exam: PRESENT: deferred Neurological exam: PRESENT: alert, awake, oriented to person, oriented to place, oriented to time, oriented to situation, CN II-XII grossly intact Psychiatric exam: PRESENT: appropriate affect, normal mood Skin exam: PRESENT: dry, intact, warm Results Laboratory Results: 09/26/20 19:06 09/26/20 10:18 09/26/20 09/26/20 09/26/20 10:18 10:18 19:06 WBC 10.0 9.8 RBC 3.76 3.53 L Hgb 11.6 L 10.7 L Hct 34.6 L 32.5 L MCV 92 92 MCH 31.0 30.4 MCHC 33.6 33.0 RDW 14.7 H 14.7 H Plt Count 211 193 Seg Neutrophils % 90.0 H 83.9 H Sodium 136.7 L Potassium 3.9 Chloride 101 Carbon Dioxide 31 H Anion Gap 5 BUN 19 Creatinine 1.16 Est GFR ( Amer) 58 L Glucose 159 H Calcium 8.6 Total Bilirubin 0.4 AST 15 Alkaline Phosphatase 77 Total Protein 6.4 Albumin 3.6 09/26/20 09/26/20 09/26/20 10:18 10:18 12:30 Creatine Kinase 51 CK-MB (CK-2) 1.10 Troponin I < 0.012 0.014 09/26/20 09/26/20 19:06 19:06 Creatine Kinase CK-MB (CK-2) 0.73 Troponin I < 0.012 Impressions: Chest X-Ray 09/26/20 09:26 IMPRESSION: NO ACUTE RADIOGRAPHIC FINDING IN THE CHEST. Assessment & Plan - Diagnosis (1) Chest pain Qualifiers: Chest pain type: unspecified Qualified Code(s): R07.9 - Chest pain, unspecified Is this a current diagnosis for this admission?: Yes Plan: She has multiple risk factors for ischemic heart disease, and a suspicious chest pain for cardiac related event, cannot completely rule out unstable angina in this patient, she will be empirically treated with IV heparin, antiplatelet. She has multiple risk factors for ischemic heart disease including a recalcitrant smoker, hypertension, diabetes (2) Acute exacerbation of chronic obstructive pulmonary disease (COPD) Is this a current diagnosis for this admission?: Yes Plan: She has chronic obstructive lung disease, on auscultation of the chest there prolongation of the expiratory phase of respiration, She is also coughing, we need to rule out SARS-CoV-2 infection - Time Time Spent: Greater than 70 Minutes Medications reviewed and adjusted accordingly: Yes Anticipated Discharge Disposition: Home, Self Care Anticipated Discharge Timeframe: within 72 hours - Inpatient Certification Based on my medical assessment, after consideration of the patient's comorbidities, presenting symptoms, or acuity I expect that the services needed warrant INPATIENT care.: Yes I certify that my determination is in accordance with my understanding of Medicare's requirements for reasonable and necessary INPATIENT services [42 CFR 412.3e].: Yes
[2020-09-26] MEDS: HEPARIN SODIUM,PORCINE/D5W 25,000 UNIT/250 ML RTUINJ IV PRN (20:36)
[2020-09-26 20:40] LABS: FERRITIN 33.7 ng/mL (11.1-264.0)
[2020-09-26] MEDS ORDERED: NITROGLYCERIN/D5W 50 MG/250 ML RTUINJ IV PRN (21:08)
[2020-09-26] MEDS: AMLODIPINE BESYLATE 10 MG TABLET PO SCH (21:46)
[2020-09-26] MEDS: QUETIAPINE FUMARATE 100 MG TABLET PO SCH (21:46)
[2020-09-26] MEDS: CLONIDINE HCL 0.2 MG TABLET PO SCH (21:46)
[2020-09-26] MEDS: GABAPENTIN 300 MG CAPSULE PO SCH (21:46)
[2020-09-26] MEDS ORDERED: QUETIAPINE FUMARATE 50 MG PO SCH (22:00)
[2020-09-27 02:32] LABS: APPEARANCE,URINE SLIGHTLY-CLOUDY; BILIRUBIN,URINE NEGATIVE (NEGATIVE); COLOR,URINE YELLOW; GLUCOSE, URINE NEGATIVE (NEGATIVE); KETONES,URINE NEGATIVE (NEGATIVE); LEUKOCYTE ESTERASE,URINE SMALL (NEGATIVE); NITRITE,URINE NEGATIVE (NEGATIVE); PROTEIN,URINE 100 mg/dL (NEGATIVE); URINE SPECIFIC GRAVITY 1.023; UROBILINOGEN,URINE NEGATIVE mg/dL (<2.0)
[2020-09-27] MEDS: HEPARIN SOD (PORCINE) 1,000 UNIT/ML 10 ML VIAL IV PRN ×2 (03:34→19:10)
[2020-09-27] MEDS: CLONIDINE HCL 0.2 MG TABLET PO SCH ×3 (05:37→21:29)
[2020-09-27] MEDS: GABAPENTIN 300 MG CAPSULE PO SCH ×3 (05:37→21:29)
[2020-09-27] MEDS: PANTOPRAZOLE SODIUM 20 MG TABLET.DR PO SCH (09:51)
[2020-09-27] MEDS: PRAMIPEXOLE DI-HCL 0.25 MG TABLET PO SCH (09:51)
[2020-09-27] MEDS: ZINC SULFATE 220 MG CAPSULE PO SCH (09:51)
[2020-09-27] MEDS: AMLODIPINE BESYLATE 10 MG TABLET PO SCH (09:52)
[2020-09-27] MEDS: AZITHROMYCIN 250 MG TABLET PO SCH (09:52)
[2020-09-27] MEDS: ASPIRIN 81 MG TABLET, ENT COATED PO SCH (09:52)
[2020-09-27] MEDS: CHOLECALCIFEROL (D3) 1,000 UNIT (25 MCG) TABLET PO SCH (09:53)
[2020-09-27] MEDS: ASCORBIC ACID 500 MG TABLET PO SCH ×2 (09:53→17:41)
--- NOTE | 2020-09-27 10:45 | EKG REPORT ---
SEVERITY:- OTHERWISE NORMAL ECG - SINUS BRADYCARDIA ATRIAL PREMATURE COMPLEX : Confirmed by: Imelda Gilbert MD 27-Sep-2020 10:44:19
[2020-09-27 14:26] LABS: APPEARANCE,URINE CLEAR; BILIRUBIN,URINE NEGATIVE (NEGATIVE); COLOR,URINE STRAW; GLUCOSE, URINE NEGATIVE (NEGATIVE); KETONES,URINE NEGATIVE (NEGATIVE); LEUKOCYTE ESTERASE,URINE TRACE (NEGATIVE); NITRITE,URINE NEGATIVE (NEGATIVE); PROTEIN,URINE NEGATIVE (NEGATIVE); URINE SPECIFIC GRAVITY 1.008; UROBILINOGEN,URINE NEGATIVE mg/dL (<2.0)
--- NOTE | 2020-09-27 18:52 | PDOC PROGRESS REPORT ---
Subjective Date:: 09/27/20 Subjective:: Patient was admitted yesterday for suspicious chest pain, presently on IV hepari n, nitroglycerin infusion, she also had hypertensive emergency. She has less pressure today diabetes says cardiac enzymes negative for acute DE, the respiratory viral pathogen panel negative Reason For Visit: CHEST PAIN R/O ACS,MULTIPLE CARDIAC RISK FACTORS Physical Exam Vital Signs: Temp Pulse Resp BP Pulse Ox 98.2 F 49 L 13 115/57 L 96 09/27/20 15:35 09/27/20 17:00 09/27/20 15:35 09/27/20 17:00 09/27/20 15:34 Intake & Output 09/26/20 09/27/20 09/28/20 06:59 06:59 06:59 Intake Total 597 617 Output Total 900 1050 Balance -303 -433 Weight 72.4 kg General appearance: PRESENT: no acute distress Eye exam: PRESENT: PERRLA Respiratory exam: PRESENT: clear to auscultation meaghan Cardiovascular exam: PRESENT: +S1, +S2 GI/Abdominal exam: PRESENT: soft Neurological exam: PRESENT: alert Results Laboratory Results: 09/26/20 19:06 09/26/20 10:18 09/26/20 09/26/20 09/27/20 19:06 19:06 02:01 WBC 9.8 RBC 3.53 L Hgb 10.7 L Hct 32.5 L MCV 92 MCH 30.4 MCHC 33.0 RDW 14.7 H Plt Count 193 Seg Neutrophils % 83.9 H Phosphorus 3.8 Ferritin 33.70 C-Reactive Protein 16.9 H Urine Color YELLOW Urine Appearance SLIGHTLY-CLOUDY Urine pH 6.0 Ur Specific [place] 1.023 Urine Protein 100 H Urine Glucose (UA) NEGATIVE Urine Ketones NEGATIVE Urine Blood SMALL H Urine Nitrite NEGATIVE Ur Leukocyte Esterase SMALL H Urine WBC (Auto) 3 Urine RBC (Auto) 2 09/27/20 13:52 WBC RBC Hgb Hct MCV MCH MCHC RDW Plt Count Seg Neutrophils % Phosphorus Ferritin C-Reactive Protein Urine Color STRAW Urine Appearance CLEAR Urine pH 6.0 Ur Specific [place] 1.008 Urine Protein NEGATIVE Urine Glucose (UA) NEGATIVE Urine Ketones NEGATIVE Urine Blood NEGATIVE Urine Nitrite NEGATIVE Ur Leukocyte Esterase TRACE H Urine WBC (Auto) 1 Urine RBC (Auto) 0 09/26/20 09/26/20 09/26/20 10:18 10:18 12:30 Creatine Kinase 51 CK-MB (CK-2) 1.10 Troponin I < 0.012 0.014 09/26/20 09/26/20 09/27/20 19:06 19:06 02:08 Creatine Kinase CK-MB (CK-2) 0.73 Troponin I < 0.012 < 0.012 09/27/20 07:55 Creatine Kinase CK-MB (CK-2) Troponin I < 0.012 Impressions: Chest X-Ray 09/26/20 09:26 IMPRESSION: NO ACUTE RADIOGRAPHIC FINDING IN THE CHEST. Assessment & Plan - Diagnosis (1) Chest pain Qualifiers: Chest pain type: unspecified Qualified Code(s): R07.9 - Chest pain, unspe cified Is this a current diagnosis for this admission?: Yes Plan: The chest pain is suspicious for ischemic chest pain, patient scheduled for s tress test tomorrow, (2) Acute exacerbation of chronic obstructive pulmonary disease (COPD) Is this a current diagnosis for this admission?: Yes Plan: Start Trelegy (3) Hypertensive emergency Is this a current diagnosis for this admission?: Yes Plan: She has a hypertensive emergency blood pressure well controlled on present regimen - Time Time Spent with patient: 35 or more minutes Level of Care: IMCU Medications reviewed and adjusted accordingly: Yes Anticipated discharge: Home Anticipated DC Timeframe: within 72 hours
[2020-09-27] MEDS: HEPARIN SODIUM,PORCINE/D5W 25,000 UNIT/250 ML RTUINJ IV PRN (19:10)
[2020-09-27] MEDS: QUETIAPINE FUMARATE 100 MG TABLET PO SCH (21:30)
[2020-09-27] MEDS: FLUTICASONE/UMECLIDIN/VILANTER 100-62.5-25 MCG/DOSE IH SCH (21:35)
[2020-09-28] MEDS: HEPARIN SOD (PORCINE) 1,000 UNIT/ML 10 ML VIAL IV PRN ×2 (02:52→18:02)
[2020-09-28] MEDS: CLONIDINE HCL 0.2 MG TABLET PO SCH ×2 (05:28→13:45)
[2020-09-28] MEDS: GABAPENTIN 300 MG CAPSULE PO SCH ×2 (05:28→13:45)
[2020-09-28 09:57] LABS: PROTHROMBIN TIME 12.3 SEC (11.4-15.4)
[2020-09-28 10:27] LABS: PARTIAL THROMBOPLASTIN TIME 112.6 SEC (23.5-35.8)
[2020-09-28] MEDS: CHOLECALCIFEROL (D3) 1,000 UNIT (25 MCG) TABLET PO SCH (10:39)
[2020-09-28] MEDS: PRAMIPEXOLE DI-HCL 0.25 MG TABLET PO SCH (10:40)
[2020-09-28] MEDS: ASPIRIN 81 MG TABLET, ENT COATED PO SCH (10:40)
[2020-09-28] MEDS: PANTOPRAZOLE SODIUM 20 MG TABLET.DR PO SCH (10:40)
[2020-09-28] MEDS: AZITHROMYCIN 250 MG TABLET PO SCH (10:41)
[2020-09-28] MEDS: AMLODIPINE BESYLATE 10 MG TABLET PO SCH (10:41)
[2020-09-28] MEDS: ZINC SULFATE 220 MG CAPSULE PO SCH (10:41)
[2020-09-28] MEDS: ASCORBIC ACID 500 MG TABLET PO SCH ×2 (10:42→17:07)
[2020-09-28] MEDS: FLUTICASONE/UMECLIDIN/VILANTER 100-62.5-25 MCG/DOSE IH SCH (13:46)
[2020-09-28] MEDS: HEPARIN SODIUM,PORCINE/D5W 25,000 UNIT/250 ML RTUINJ IV PRN (17:08)
[2020-09-28 18:55] VITALS: BP 136/69
--- NOTE | 2020-09-28 20:29 | PDOC DISCHARGE SUMMARY ---
Impression - Admit/DC Date/PCP Admission Date/Primary Care Provider: 09/26/20 17:51 SHUBHAM ESCOBEDO MD Discharge Date: 09/28/20 - Discharge Diagnosis (1) Chest pain Is this a current diagnosis for this admission?: Yes (2) Acute exacerbation of chronic obstructive pulmonary disease (COPD) Is this a current diagnosis for this admission?: Yes (3) Hypertensive emergency Is this a current diagnosis for this admission?: Yes - Additional Information Referrals: SHUBHAM ESCOBEDO MD [Primary Care Provider] - Follow up as needed Prescriptions: RX: Clonidine HCl [Catapres 0.2 mg Tablet] 0.2 mg PO Q8 #90 tablet Home Medications: RX: Amlodipine Besylate [Norvasc 10 mg Tablet] 10 mg PO DAILY #30 tablet 02/07/19 RX: Pramipexole Di-HCl [Mirapex] 0.125 mg PO DAILY #30 tablet 02/07/19 RX: Gabapentin 300 mg PO TID 09/26/20 RX: Omeprazole 20 mg PO DAILY 09/26/20 RX: Quetiapine Fumarate [Quetiapine Fumarate ER] 50 mg PO QHS 09/26/20 RX: Tiotropium Br/Olodaterol HCl [Stiolto Respimat Inhal [place]] 2 puff IH DAILY 09/26/20 RX: Clonidine HCl [Catapres 0.2 mg Tablet] 0.2 mg PO Q8 #90 tablet 09/28/20 History of Present Illiness History of Present Illness: ANUPAM MENON is a 60 year old female, She has a history of type 2 diabetes mellitus, hypertension, recalcitrant smoker, COPD, she came to the emergency room today for evaluation of acute onset chest pain, feels like pressure, the pain radiates to the neck the back and the shoulder, associated with shortness of breath. The pain was not provoked by activity nor relieved by rest that would suggest typical angina but she has multiple risk factors for ischemic heart disease,The characteristic of the pain including pressure sensation, the pattern of radiation is very suspicious for cardiac related chest pain. Hospital Course Hospital Course: Patient was admitted for the management of hypertensive emergency, suspicious chest pain for ischemic heart disease. She was empirically treated with intravenous heparin, antiplatelet aspirin, nitroglycerin drip. 3 sets of cardiac enzymes negative for acute IN, the blood pressure was well controlled on the regimen that was adopted on this admission. She underwent Cardiolite Lexiscan stress test, negative for reversibility, the EF was slightly low on the stress test will need outpatient transthoracic echocardiogram.She also have COPD with prolonged expiratory phase, she is advised to stop smoking. Physical Exam Vital Signs: Temp Pulse Resp BP Pulse Ox 97.9 F 50 L 18 136/69 H 93 09/28/20 18:50 09/28/20 18:50 09/28/20 18:50 09/28/20 18:50 09/28/20 18:50 Intake & Output 09/27/20 09/28/20 09/29/20 06:59 06:59 06:59 Intake Total 597 1374 700 Output Total 900 1050 Balance -303 324 700 Weight 72.4 kg 72.4 kg General appearance: PRESENT: no acute distress Eye exam: PRESENT: PERRLA Respiratory exam: PRESENT: clear to auscultation meaghan Cardiovascular exam: PRESENT: +S1, +S2 GI/Abdominal exam: PRESENT: soft Neurological exam: PRESENT: alert Results Laboratory Results: WBC 9.8 10^3/uL (4.0-10.5) 09/26/20 19:06 RBC 3.53 10^6/uL (3.72-5.28) L 09/26/20 19:06 Hgb 10.7 g/dL (12.0-15.5) L 09/26/20 19:06 Hct 32.5 % (36.0-47.0) L 09/26/20 19:06 MCV 92 fl (80-97) 09/26/20 19:06 MCH 30.4 pg (27.0-33.4) 09/26/20 19:06 MCHC 33.0 g/dL (32.0-36.0) 09/26/20 19:06 RDW 14.7 % (11.5-14.0) H 09/26/20 19:06 Plt Count 193 10^3/uL (150-450) 09/26/20 19:06 Lymph % (Auto) 10.3 % (13-45) L 09/26/20 19:06 [place] % (Auto) 5.8 % (3-13) 09/26/20 19:06 Eos % (Auto) 0.0 % (0-6) 09/26/20 19:06 Baso % (Auto) 0.0 % (0-2) 09/26/20 19:06 Absolute Neuts (auto) 8.3 10^3/uL (1.7-8.2) H 09/26/20 19:06 Absolute Lymphs (auto) 1.0 10^3/uL (0.5-4.7) 09/26/20 19:06 Absolute Monos (auto) 0.6 10^3/uL (0.1-1.4) 09/26/20 19:06 Absolute Eos (auto) 0.0 10^3/uL (0.0-0.6) 09/26/20 19:06 Absolute Basos (auto) 0.0 10^3/uL (0.0-0.2) 09/26/20 19:06 Seg Neutrophils % 83.9 % (42-78) H 09/26/20 19:06 PT 12.3 SEC (11.4-15.4) 09/28/20 09:22 INR 0.90 09/28/20 09:22 APTT 41.7 SEC (23.5-35.8) H 09/28/20 17:00 Fibrinogen 371 mg/dL (209-497) 09/26/20 19:06 D-Dimer 0.60 ug/mL (0.00-0.50) H 09/27/20 02:08 Sodium 136.7 mmol/L (137-145) L 09/26/20 10:18 Potassium 3.9 mmol/L (3.6-5.0) 09/26/20 10:18 Chloride 101 mmol/L (98-107) 09/26/20 10:18 Carbon Dioxide 31 mmol/L (22-30) H 09/26/20 10:18 Anion Gap 5 (5-19) 09/26/20 10:18 BUN 19 mg/dL (7-20) 09/26/20 10:18 Creatinine 1.16 mg/dL (0.52-1.25) 09/26/20 10:18 Est GFR ( Amer) 58 (>60) L 09/26/20 10:18 Est GFR (MDRD) Non-Af 48 (>60) L 09/26/20 10:18 Glucose 159 mg/dL (75-110) H 09/26/20 10:18 Hemoglobin A1c % 6.7 % (4.7-6.0) H 09/26/20 10:18 Calcium 8.6 mg/dL (8.4-10.2) 09/26/20 10:18 Phosphorus 3.8 mg/dL (2.5-4.5) 09/26/20 19:06 Ferritin 33.70 ng/mL (11.1-264.0) 09/26/20 19:06 Total Bilirubin 0.4 mg/dL (0.2-1.3) 09/26/20 10:18 Direct Bilirubin 0.2 mg/dL (0.0-0.4) 09/26/20 10:18 Neonat Total Bilirubin Not Reportable 09/26/20 10:18 Neonat Direct Bilirubin Not Reportable 09/26/20 10:18 Neonat Indirect Bili Not Reportable 09/26/20 10:18 AST 15 U/L (14-36) 09/26/20 10:18 ALT 11 U/L (<35) 09/26/20 10:18 Alkaline Phosphatase 77 U/L (38-126) 09/26/20 10:18 Lactate Dehydrogenase 192 U/L (120-246) 09/26/20 19:06 Creatine Kinase 51 U/L (30-135) 09/26/20 10:18 CK-MB (CK-2) 0.73 ng/mL (<4.55) 09/26/20 19:06 Troponin I < 0.012 ng/mL 09/27/20 07:55 C-Reactive Protein 16.9 mg/L (<10.0) H 09/26/20 19:06 Total Protein 6.4 g/dL (6.3-8.2) 09/26/20 10:18 Albumin 3.6 g/dL (3.5-5.0) 09/26/20 10:18 Urine Color STRAW 09/27/20 13:52 Urine Appearance CLEAR 09/27/20 13:52 Urine pH 6.0 (5.0-9.0) 09/27/20 13:52 Ur Specific [place] 1.008 09/27/20 13:52 Urine Protein NEGATIVE mg/dL (NEGATIVE) 09/27/20 13:52 Urine Glucose (UA) NEGATIVE mg/dL (NEGATIVE) 09/27/20 13:52 Urine Ketones NEGATIVE mg/dL (NEGATIVE) 09/27/20 13:52 Urine Blood NEGATIVE (NEGATIVE) 09/27/20 13:52 Urine Nitrite NEGATIVE (NEGATIVE) 09/27/20 13:52 Urine Bilirubin NEGATIVE (NEGATIVE) 09/27/20 13:52 Urine Urobilinogen NEGATIVE mg/dL (<2.0) 09/27/20 13:52 Ur Leukocyte Esterase TRACE (NEGATIVE) H 09/27/20 13:52 Urine WBC (Auto) 1 /HPF 09/27/20 13:52 Urine RBC (Auto) 0 /HPF 09/27/20 13:52 U Hyaline Cast (Auto) 1 /LPF 09/27/20 02:01 Urine Bacteria (Auto) TRACE /HPF 09/27/20 02:01 Squamous Epi Cells Auto 1 /HPF 09/27/20 13:52 Urine Mucus (Auto) RARE /LPF 09/27/20 02:01 Urine Ascorbic Acid NEGATIVE (NEGATIVE) 09/27/20 13:52 [place] Human Metapneumo PCR NOT DETECTED (NOT DETECT) 09/27/20 09:58 Adenovirus (PCR) NOT DETECTED (NOT DETECT) 09/27/20 09:58 B. pertussis DNA (PCR) NOT DETECTED (NOT DETECT) 09/27/20 09:58 B.parapertussis DNA PCR NOT DETECTED (NOT DETECT) 09/27/20 09:58 C. pneumoniae DNA (PCR) NOT DETECTED (NOT DETECT) 09/27/20 09:58 Coronavirus OC43 (PCR) NOT DETECTED (NOT DETECT) 09/27/20 09:58 Coronavirus HKU1 (PCR) NOT DETECTED (NOT DETECT) 09/27/20 09:58 Coronavirus 229E (PCR) NOT DETECTED (NOT DETECT) 09/27/20 09:58 Coronavirus NL63 (PCR) NOT DETECTED (NOT DETECT) 09/27/20 09:58 Influenza A (Rapid) Cancelled 09/27/20 09:58 Influenza A (H1) PCR NOT DETECTED (NOT DETECT) 09/27/20 09:58 Influ A (H1N1/09) PCR NOT DETECTED (NOT DETECT) 09/27/20 09:58 Influenza A (H3) PCR NOT DETECTED (NOT DETECT) 09/27/20 09:58 Influenza Type A (PCR) NOT DETECTED (NOT DETECT) 09/27/20 09:58 Influenza B (Rapid) Cancelled 09/27/20 09:58 Influenza Type B (PCR) NOT DETECTED (NOT DETECT) 09/27/20 09:58 M. pneumoniae (PCR) NOT DETECTED (NOT DETECT) 09/27/20 09:58 Parainfluenza 1 (PCR) NOT DETECTED (NOT DETECT) 09/27/20 09:58 Parainfluenza 2 (PCR) NOT DETECTED (NOT DETECT) 09/27/20 09:58 Parainfluenza 3 (PCR) NOT DETECTED (NOT DETECT) 09/27/20 09:58 Parainfluenza 4 (PCR) NOT DETECTED (NOT DETECT) 09/27/20 09:58 RSV Antigen Cancelled 09/27/20 00:50 RSV (PCR) NOT DETECTED (NOT DETECT) 09/27/20 09:58 Entero/Rhino (PCR) NOT DETECTED (NOT DETECT) 09/27/20 09:58 SARS-CoV-2 (PCR) NOT DETECTED (NOT DETECT) 09/27/20 09:58 Group A Strep Rapid NEGATIVE (NEGATIVE) 09/27/20 09:58 09/26/20 09/26/20 09/26/20 10:18 12:30 19:06 CK-MB (CK-2) 1.10 0.73 Troponin I < 0.012 0.014 09/26/20 09/27/20 09/27/20 19:06 02:08 07:55 CK-MB (CK-2) Troponin I < 0.012 < 0.012 < 0.012 Impressions: Chest X-Ray 09/26/20 09:26 IMPRESSION: NO ACUTE RADIOGRAPHIC FINDING IN THE CHEST. Stroke Is this a Stroke Patient?: No Acute Heart Failure Is this a Heart Failure Patient?: No
--- NOTE | 2020-09-28 21:28 | EKG REPORT ---
SEVERITY:- ABNORMAL ECG - SINUS BRADYCARDIA CONSIDER LEFT VENTRICULAR HYPERTROPHY : Confirmed by: Imelda Gilbert MD 28-Sep-2020 21:27:06
== END 2020-09-28 19:29 | disposition home or self-care (01) | DRG 305 ==
LOC: ER 08:40 → EH 12:21 → 3W 15:41 → OBSVTOIN 17:51
PROVIDERS: ADMIT Internal Medicine; ATTEND Internal Medicine
DX: I16.1 Hypertensive emergency (principal); J44.1 Chronic obstructive pulmonary disease with (acute) exacerbation; Z20.828 Contact with and (suspected) exposure to other viral communicable diseases; I10 Essential (primary) hypertension; E11.9 Type 2 diabetes mellitus without complications; R07.9 Chest pain, unspecified; F32.9 Major depressive disorder, single episode, unspecified; F17.210 Nicotine dependence, cigarettes, uncomplicated; Z71.6 Tobacco abuse counseling; Z91.19 Patient's noncompliance with other medical treatment and regimen; Z79.899 Other long term (current) drug therapy
CPT/HCPCS: 0202U; 36415; 71045; 78452; 80053; 81001; 82550; 82553; 82728; 83036; 83615; 84100; 84484; 85025; 85379; 85384; 85610; 85730; 86140; 87070; 87880; 93005; 93010; 93017; 99285; A9500; J1644; J2785; J3490; Q9969